=== PATIENT | male | born 1945 | race Caucasian/White ===

== ENCOUNTER → 2017-06-26 | Day surgery (SDC) | payer MEDICARE, OTHER ==
[2017-06-22 10:17] VITALS: BMI 30.7
[~2017-06-26] MED LIST: SODIUM CHLORIDE 0.9% 1,000 ML IV SCH
[2017-06-26 12:24] VITALS: RESP 18; TEMP 98.1
[2017-06-26 12:34] LABS: Glucose,Whole Blood 117 mg/dL (75-99)
[2017-06-26] MEDS: IOHEXOL 350 MG/ML 50ML BOTTLE INJ ONE ×2 (13:06→13:08)
--- NOTE | 2017-06-26 13:50 | P.PCN ---
Preoperative Diagnosis: Procedure left upper extremity venogram Indication for the procedure Evaluate patency of left upper extremity veins including left subclavian innominate and axillary veins prior to upgrade to a biventricular system 100% RV pacing 2-D echo shows a left radical ejection fraction chronically reduced at 35% Procedure IV dye was injected in the left upper extremity and moderate stenosis was noted at the junction of the axillary/subclavian vein for about a centimeter or so. It is quite likely that within range past RN SURGICAL PCU, and LV lead should be implanted via this. Patient has a history of progressive cardio myopathy. Original implant of a dual-chamber pacemaker was in 2012. Ejection fraction 50%. 2013 ejection fraction again was 50%. Subsequently in 2016 ejection fraction was reduced. In 2017 2-D echo has shown reduced LV systolic function. Stress test shows a fixed defect only no ischemia. Patient complains of gradually increasing shortness of breath and heart failure symptoms It is quite likely that his cardiomyopathy is as a result of RV pacing and therefore I have recommended upgrade to a biventricular pacemaker I also discussed the option of laser lead extraction in the event of inability to pass the area of the stenosis to implant a [employer]ESSED [employer] device Risk and benefits of both approaches were discussed in detail Plan TVP New LV lead implant Upgrade to a biventricular pacemaker device
[2017-06-26 14:31] VITALS: PULSE 64
[2017-06-26 14:32] VITALS: BP 145/65
== END ==
LOC: CATHEP 11:53
PROVIDERS: ATTEND Internal Medicine Clinical Cardiac Electrophysiology
DX: I25.10 Atherosclerotic heart disease of native coronary artery without angina pectoris (principal); I87.1 Compression of vein; I11.9 Hypertensive heart disease without heart failure; I25.5 Ischemic cardiomyopathy; I42.0 Dilated cardiomyopathy; I44.2 Atrioventricular block, complete; E78.00 Pure hypercholesterolemia, unspecified; E11.9 Type 2 diabetes mellitus without complications; Z95.1 Presence of aortocoronary bypass graft; Z95.0 Presence of cardiac pacemaker; Z79.84 Long term (current) use of oral hypoglycemic drugs; Z79.82 Long term (current) use of aspirin; Z79.899 Other long term (current) drug therapy; Z87.891 Personal history of nicotine dependence
CPT/HCPCS: 36005; 75820; 76000; Q9967

== ENCOUNTER 2024-04-02 15:06 | Day surgery (SDC) | payer MEDICARE ==
[2024-04-02] MEDS ORDERED: LIDOCAINE 1% INJ 10MG/ML (20 ML MDV) ONE (19:00)
[2024-04-02] MEDS ORDERED: SODIUM CHLORIDE 0.9% 500 ML BAG ONE (19:00)
[2024-04-02] MEDS: IOPAMIDOL-370 100ML BTL IVP ONE (19:08)
--- NOTE | 2024-04-05 15:57 | CE ---
CARDIAC ELECTROPHYSIOLOGY REPORT Mr. Km Amos has a biventricular pacemaker whose LV lead has high output resulting in rapid battery depletion. He underwent biventricular pacemaker interrogation. He has a battery life of 1.7 years. His left ventricular ejection fraction is reduced to 45%. The atrial lead was functioning normally. Pacing threshold is 0.7 V at 0.4 milliseconds. P waves 2.6 mV and pacing impedance 460 ohms. Right ventricular lead pacing threshold was 1 V at 0.4 milliseconds and pacing impedance is 440 ohms. LV pacing threshold was very high with a high impedance of greater than 3000 and therefore there was no LV pacing at this time. 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 He has Prater device Quadra Allure MP RF model #3262 ASSORTER-P. Left upper extremity venogram was performed. 15 mL of IV dye injected. 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 This stenosis is fairly tight, but there seems to be flow into the channel and it may be possible to access this with an angioplasty wire followed by venoplasty and implantation of a left bundle lead. If this is not possible, then a right-sided implant will have to be performed or an epicardial implant for the left ventricular lead. MMODL / IJN: [id number] /
== END 2024-04-02 19:36 | disposition home or self-care (01) ==
LOC: CATHEP 15:06
PROVIDERS: ATTEND Internal Medicine Clinical Cardiac Electrophysiology
DX: I42.9 Cardiomyopathy, unspecified (principal)
CPT/HCPCS: 36005; 75820

== ENCOUNTER 2024-07-04 15:08 | Inpatient (IN) | payer MEDICARE ==
[2024-07-04 16:05] LABS: Basophils % (A) 0 %; Eosinophils # (A) 0.4 k/uL (0-0.7); Eosinophils % (A) 5 %; HCT 41.3 % (39.0-53.0); HGB 13.7 gm/dL (13.0-17.5); Lymphocytes # (A) 1.6 k/uL (1.0-4.8); Lymphocytes % (A) 20 %; MCH 30.8 pg (25.0-35.0); MCHC 33.2 g/dL (31.0-37.0); MCV 92.6 fL (80.0-100.0); Mean Platelet Volume 8.9; Monocytes # (A) 0.6 k/uL (0-1.0); Monocytes % (A) 7 %; Neutrophils # (A) 5.1 k/uL (1.3-7.7); Neutrophils % (A) 65 %; Platelet Count 194 k/uL (150-450); RBC 4.46 m/uL (4.30-5.90); RDW 12.9 % (11.5-15.5); WBC 7.9 k/uL (3.8-10.6)
--- NOTE | 2024-07-04 16:06 | ED ---
General Adult HPI - General Chief complaint: Dizziness Stated complaint: post stroke, dizziness Time Seen by Provider: 07/04/24 15:31 Source: patient, family, RN notes reviewed, old records reviewed Mode of arrival: wheelchair Limitations: no limitations - History of Present Illness Initial comments: 79-year-old male presenting from Dr. Lal's office for evaluation of dizziness and episodes of bilateral upper extremity numbness and inability to move. Patient has had 3 total episodes over the past 2 weeks where he has had unsteady gait, dizziness and the sensation that his upper torso is completely numb. He denies numbness to his legs. He he denies symptoms at the time my evaluation. He states that each episode lasted several minutes with the most recent one lasting approximately 3 minutes. No fever. No headache. No chest or abdominal pain. No history of stroke no history of seizure - Related Data Home Medications Medication Instructions Recorded Confirmed Glimepiride [Amaryl] 1 mg PO BID 10/09/15 07/31/17 Atorvastatin [Lipitor] 20 mg PO HS 06/22/17 07/31/17 Fenofibrate Nanocrystallized 145 mg PO DAILY 06/22/17 07/31/17 [Fenofibrate] Spironolactone [Aldactone] 25 mg PO DAILY 06/22/17 07/31/17 carvediloL [Coreg] 12.5 mg PO BID 06/22/17 07/31/17 metFORMIN HCL [Glucophage] 1,000 mg PO BID 06/22/17 07/31/17 Aspirin 81 mg PO DAILY 07/31/17 07/31/17 Previous Rx's Medication Instructions Recorded Losartan [Cozaar] 25 mg PO DAILY #90 tab 07/31/17 Allergies Allergy/AdvReac Type Severity Reaction Status Date / Time No Known Allergies Allergy Verified 07/27/17 13:07 Review of Systems ROS Statement: Those systems with pertinent positive or pertinent negative responses have been documented in the HPI. ROS Other: All systems not noted in ROS Statement are negative. Past Medical History Past Medical History: Coronary Artery Disease (CAD), Cancer, Diabetes Mellitus, Hyperlipidemia, Hypertension, Myocardial Infarction ([place]), Osteoarthritis (OA), Sleep Apnea/CPAP/BIPAP Additional Past Medical History / Comment(s): PROSTATE CANCER WITH RADIATION & HORMONE TX(2013), SEE CARDIOLOGY H & P., STATES BREASTS ARE SWOLLEN AND SORE (>4 MONTHS) Last Myocardial Infarction Date:: 2008 ? History of Any Multi-Drug Resistant Organisms: None Reported Past Surgical History: Back Surgery, Cholecystectomy, Coronary Bypass/CABG, Heart Catheterization, Orthopedic Surgery, Pacemaker Additional Past Surgical History / Comment(s): CABG X4 in 2009, LOWER BACK, NECK SX X2, FOOT SX X 3, CATARACTS. Past Anesthesia/Blood Transfusion Reactions: No Reported Reaction Type of Cardiac Device: Permanent Pacemaker Device Placement Date:: 2012 Past Psychological History: No Psychological Hx Reported Past Alcohol Use History: None Reported Past Drug Use History: None Reported - Past Family History Brother(s) Family Medical History: Cancer Additional Family Medical History / Comment(s): 2 BROTHERS WITH PROSTATE CA Mother Family Medical History: No Reported History General Exam Limitations: no limitations General appearance: alert, in no apparent distress Head exam: Present: atraumatic, normocephalic Eye exam: Present: normal appearance, PERRL ENT exam: Present: normal exam Neck exam: Present: normal inspection. Absent: tenderness, meningismus Respiratory exam: Present: normal lung sounds bilaterally. Absent: respiratory distress, wheezes Cardiovascular Exam: Present: regular rate, normal rhythm GI/Abdominal exam: Present: soft. Absent: distended, tenderness, guarding Extremities exam: Present: normal inspection, normal capillary refill. Absent: pedal edema Neurological exam: Present: alert, oriented X3, CN II-XII intact, other (No ataxia, no nystagmus, strength 5 out of 5 throughout). Absent: motor sensory deficit Psychiatric exam: Present: normal affect, normal mood Skin exam: Present: warm, dry, intact Course Vital Signs 07/04/24 07/04/24 07/04/24 15:17 16:00 17:24 Temperature 97.8 F 98.2 F Pulse Rate 60 64 60 Respiratory 16 16 14 Rate Blood Pressure 188/75 163/75 163/82 O2 Sat by Pulse 99 98 97 Oximetry Medical Decision Making - Medical Decision Making Was pt. sent in by a medical professional or institution (, PA, ENVIRONMENTAL PROGRAMS MANAGER, urgent care, hospital, or snf...) When possible be specific @Sent in by Dr. Lal for evaluation Did you speak to anyone other than the patient for history (EMS, parent, family, police, friend...)? What history was obtained from this source @ -No Did you review nursing and triage notes (agree or disagree)? Why? @ -I reviewed and agree with nursing and triage notes Were old charts reviewed (outside hosp., previous admission, EMS record, old EKG, old radiological studies, urgent care reports/EKG's, snf records)? Report findings @ -No old charts were reviewed Differential CVA Ischemic stroke, hemorrhagic stroke, brain tumor, atypical migraine, Wernicke's encephalopathy, seizure, multiple sclerosis, meningitis, encephalitis, hypoglycemia, Guillain-Carpenter, electrolytes disturbance, myasthenia gravis.... This is not meant to be an all-inclusive list] EKG interpreted by me (3pts min.). @ -Paced rhythm rate of 60 VA interval 211 QRS duration 174, QTc 462 X-rays interpreted by me (1pt min.). @Chest x-ray negative for acute cardiopulmonary findings CT interpreted by me (1pt min.). @ -None done U/S interpreted by me (1pt. min.). @ -None done What testing was considered but not performed or refused? (CT, X-rays, U/S, labs)? Why? @ -None What meds were considered but not given or refused? Why? @ -None Did you discuss the management of the patient with other professionals (professionals i.e. , PA, ENVIRONMENTAL PROGRAMS MANAGER, lab, RT, psych nurse, sexual assault social worker, building construction supervisor, teacher, foreign policy officer, case loader operator)? Give summary @ -Dr. Cleveland Was smoking cessation discussed for >3mins.? @ -No Was critical care preformed (if so, how long)? @ -No Were there social determinants of health that impacted care today? How? (Homelessness, low income, unemployed, alcoholism, drug addiction, transport ation, low edu. Level, literacy, decrease access to med. care, alf, rehab)? @ -No Was there de-escalation of care discussed even if they declined (Discuss DNR or withdrawal of care, Hospice)? DNR status @ -No What co-morbidities impacted this encounter? (DM, HTN, Smoking, COPD, CAD, Cancer, CVA, ARF, Chemo, Hep., AIDS, mental health diagnosis, sleep apnea, morbid obesity)? @ -Coronary artery disease, status post pacemaker Was patient admitted / discharged? Hospital course, mention meds given and route, prescriptions, significant lab abnormalities, going to OR and other pertinent info. @79-year-old male sent in for evaluation of episodes of bilateral upper extremity numbness and weakness there is been 3 total episodes with increasing severity over the past approximately 1 to 2 weeks. The patient was seen by cardiothoracic surgery today and sent to the emergency department for evaluation of the symptoms. He is asymptomatic at this time. Stable vitals. He is in a paced rhythm. He has a normal CBC, normal CMP normal head CT negative chest x- ray. There was request for evaluation by both cardiology and neurology for the symptoms. Patient admitted to [facility]. Undiagnosed new problem with uncertain prognosis? @ -No Drug Therapy requiring intensive monitoring for toxicity (Heparin, Nitro, Insulin, Cardizem)? @ -No Were any procedures done? @ -No Diagnosis/symptom? @ -Intermittent bilateral upper extremity numbness and weakness Acute, or Chronic, or Acute on Chronic? @ -[Acute Uncomplicated (without systemic symptoms) or Complicated (systemic symptoms)? @ -Default Side effects of treatment? @ -No Exacerbation, Progression, or Severe Exacerbation? @ -No Poses a threat to life or bodily function? How? (Chest pain, [place], PA, pneumonia, PE, COPD, DKA, ARF, appy, cholecystitis, CVA, Diverticulitis, Homicidal, Suicidal, threat to staff... and all critical care pts) @ -[Possible CVA versus seizure versus arrhythmia - Lab Data Result diagrams: 07/04/24 15:42 07/04/24 15:42 Lab Results 07/04/24 07/04/24 07/04/24 Range/Units 15:42 15:42 15:42 WBC 7.9 (3.8-10.6) k/uL RBC 4.46 (4.30-5.90) m/uL Hgb 13.7 (13.0-17.5) gm/dL Hct 41.3 (39.0-53.0) % MCV 92.6 (80.0-100.0) fL MCH 30.8 (25.0-35.0) pg MCHC 33.2 (31.0-37.0) g/dL RDW 12.9 (11.5-15.5) % Plt Count 194 (150-450) k/uL MPV 8.9 Neutrophils % 65 % Lymphocytes % 20 % Monocytes % 7 % Eosinophils % 5 % Basophils % 0 % Neutrophils # 5.1 (1.3-7.7) k/uL Lymphocytes # 1.6 (1.0-4.8) k/uL Monocytes # 0.6 (0-1.0) k/uL Eosinophils # 0.4 (0-0.7) k/uL Basophils # 0.0 (0-0.2) k/uL PT 12.2 (10.0-12.5) sec INR 1.1 (<1.2) APTT 22.9 (22.0-30.0) sec Sodium 141 (137-145) mmol/L Potassium 4.5 (3.5-5.1) mmol/L Chloride 109 H (98-107) mmol/L Carbon Dioxide 28 (22-30) mmol/L Anion Gap 4 mmol/L BUN 20 (9-20) mg/dL Creatinine 1.13 (0.66-1.25) mg/dL Est GFR (CKD-EPI)AfAm 72 (>60 ml/min/1.73 sqM) Est GFR (CKD-EPI)NonAf 63 (>60 ml/min/1.73 sqM) Glucose 90 (74-99) mg/dL Calcium 9.3 (8.4-10.2) mg/dL Magnesium 1.8 (1.6-2.3) mg/dL Total Bilirubin 0.6 (0.2-1.3) mg/dL AST 18 (17-59) U/L ALT 20 (4-49) U/L Alkaline Phosphatase 54 (38-126) U/L Troponin I (0.000-0.034) ng/mL Total Protein 6.5 (6.3-8.2) g/dL Albumin 4.3 (3.5-5.0) g/dL 07/04/24 Range/Units 15:42 WBC (3.8-10.6) k/uL RBC (4.30-5.90) m/uL Hgb (13.0-17.5) gm/dL Hct (39.0-53.0) % MCV (80.0-100.0) fL MCH (25.0-35.0) pg MCHC (31.0-37.0) g/dL RDW (11.5-15.5) % Plt Count (150-450) k/uL MPV Neutrophils % % Lymphocytes % % Monocytes % % Eosinophils % % Basophils % % Neutrophils # (1.3-7.7) k/uL Lymphocytes # (1.0-4.8) k/uL Monocytes # (0-1.0) k/uL Eosinophils # (0-0.7) k/uL Basophils # (0-0.2) k/uL PT (10.0-12.5) sec INR (<1.2) APTT (22.0-30.0) sec Sodium (137-145) mmol/L Potassium (3.5-5.1) mmol/L Chloride (98-107) mmol/L Carbon Dioxide (22-30) mmol/L Anion Gap mmol/L BUN (9-20) mg/dL Creatinine (0.66-1.25) mg/dL Est GFR (CKD-EPI)AfAm (>60 ml/min/1.73 sqM) Est GFR (CKD-EPI)NonAf (>60 ml/min/1.73 sqM) Glucose (74-99) mg/dL Calcium (8.4-10.2) mg/dL Magnesium (1.6-2.3) mg/dL Total Bilirubin (0.2-1.3) mg/dL AST (17-59) U/L ALT (4-49) U/L Alkaline Phosphatase (38-126) U/L Troponin I <0.012 (0.000-0.034) ng/mL Total Protein (6.3-8.2) g/dL Albumin (3.5-5.0) g/dL Disposition Clinical Impression: TIA (transient ischemic attack) Disposition: ADMITTED IP TO THIS HOSP Condition: Stable Is patient prescribed a controlled substance at d/c from ED?: No Referrals: Willi Johnson DO [STAFF PHYSICIAN] - 1-2 days Time of Disposition: 17:52
[2024-07-04 16:13] LABS: ALT 20 U/L (4-49); AST 18 U/L (17-59); African American GFR (CKD) 72 (>60 ml/min/1.73 sqM); Albumin 4.3 g/dL (3.5-5.0); Alkaline Phosphatase 54 U/L (38-126); Anion Gap 4 mmol/L; Blood Urea Nitrogen 20 mg/dL (9-20); Calcium 9.3 mg/dL (8.4-10.2); Carbon Dioxide 28 mmol/L (22-30); Chloride 109 mmol/L (98-107); Glucose 90 mg/dL (74-99); INR 1.1 (<1.2); Magnesium 1.8 mg/dL (1.6-2.3); Non-African American GFR(CKD) 63 (>60 ml/min/1.73 sqM); Partial Thromboplastin Time 22.9 sec (22.0-30.0); Potassium 4.5 mmol/L (3.5-5.1); Prothrombin Time 12.2 sec (10.0-12.5); Sodium 141 mmol/L (137-145); Total Bilirubin 0.6 mg/dL (0.2-1.3); Total Protein 6.5 g/dL (6.3-8.2)
--- NOTE | 2024-07-04 16:44 | CT ---
EXAMINATION TYPE: CT brain wo con DATE OF EXAM: 07/04/2024 4:24 PM COMPARISON: None. CLINICAL INDICATION: Male, 79 years old with history of weakness, weakness, dizziness TECHNIQUE: Brain: Axial CT images of the brain were obtained with coronal and sagittal reformats created and rev iewed. Contrast used: None. Oral contrast used: None. CT DLP: 1170.5 mGycm, Automated exposure control for dose reduction was used. FINDINGS: Brain: Extra-axial spaces: No abnormal extra-axial fluid collections. Ventricular system: Within normal limits Cerebral parenchyma: No acute intraparenchymal hemorrhage or mass effect. The mathis-white junction is well differentiated. Cerebellum: Unremarkable. Mass effect: No evidence of midline shift. Intracranial vasculature: Atherosclerotic calcifications of the intracranial vessels. Soft tissues: Normal. Calvarium/osseous structures: No depressed skull fracture. Paranasal sinuses and mastoid air cells: Mild scattered paranasal sinus disease. Visualized orbits: Bilateral aphakia IMPRESSION: No acute intracranial process. [facility], , 07/04/2024 4:42 PM
--- NOTE | 2024-07-04 17:18 | XR ---
EXAMINATION TYPE: XR chest 2V DATE OF EXAM: 07/04/2024 4:54 PM COMPARISON: Chest radiographs from 08/01/2017 CLINICAL INDICATION: Male, 79 years old with history of Weakness; [facility] TECHNIQUE: XR chest 2V Frontal and lateral views of the chest. FINDINGS: Lungs/Pleura: There is no evidence of pleural effusion, focal consolidation, or pneumothorax. Pulmonary vascularity: Unremarkable. Heart/mediastinum: Cardiomediastinal silhouette is unremarkable. Three lead cardiac conduction device overlying the left hemithorax with lead tips projecting over the right ventricle, right atrium and c oronary sinus. Musculoskeletal: No acute osseous pathology. Midline sternotomy wires are noted. IMPRESSION: No acute cardiopulmonary disease/process. [facility], , 07/04/2024 5:15 PM
[2024-07-04] MEDS ORDERED: NALOXONE 0.4 MG/ML 1 ML VIAL IV PRN (17:44)
[2024-07-04] MEDS ORDERED: ACETAMINOPHEN TAB 325 MG TAB PO PRN (17:44)
[2024-07-04 18:11] LABS: Appearance,Urine Clear (Clear); Bilirubin,Urine Negative (Negative); Blood,Urine Negative (Negative); Color,Urine Colorless; Glucose,Urine (UA) Negative (Negative); Ketones,Urine Negative (Negative); Leukocyte Esterase,Urine Negative (Negative); Mucus,Urine Rare /hpf; Nitrite,Urine Negative (Negative); PH, Urine 6.5 (5.0-8.0); Protein,Urine 1+ (Negative); RBC,Urine <1 /hpf (0-5); Specific Gravity,Urine 1.008 (1.001-1.035); Urobilinogen,Urine <2.0 mg/dL (<2.0); WBC,Urine <1 /hpf (0-5)
[2024-07-04] MEDS ORDERED: DEXTROSE 50% SYRINGE 50 ML IVP PRN ×2 (21:21)
--- NOTE | 2024-07-05 02:01 | P.HPIM ---
History of Present Illness H&P Date: 07/04/24 History of present illness; 79-year-old man with a PMH of ischemic cardiomyo finn with IV pacemaker placement, EF 35%, diabetes mellitus, hyperlipidemia, hypertension, myocardial infarction, sleep apnea, history of prostate cancer with radiation and hormone therapy (2013). He presented to the emergency department from Dr. Lal's office for evaluation of dizziness and episodes of bilateral upper extremity numbness and inability to move. Patient states he has had 3 total episodes for the past 2 weeks where he has had an unsteady gait, dizziness and a sensation that his upper torso is completely numb. He denies any numbness in his legs. He states that each episode lasts several minutes with the most recent one lasting approximately 3 minutes. He states he has had no fever, no headache, no chest or abdominal pain. He has no history of strokes or seizures. When seen at bedside the patient states he is not currently having any symptoms and has not since the episode yesterday. He does state that over the past month or so he has noticed feeling increasingly unsteady when walking, however he is able to ambulate and carry out ADLs and he remains very active ou tside. He has no acute complaints at this time. Labratory review: -WBC 7.9, hemoglobin 13.7, hematocrit 41.3, platelet 194; sodium 141, potassium 4.5, BUN 20, creatinine 1.13, glucose 90, AST 18, ALT 20 -Urinalysis noncontributory Imaging: -CT brain completed in the emergency department showed no acute intracranial process -Chest x-ray in the emergency department showed no acute cardiopulmonary disease/process -EKG done in the ER showed Electronic pacemaker with heart rate of 60, no ST segment elevation or depression seen, no T-wave inversions seen; QTc 462 Vitals: -Blood pressure 150/88, heart rate 60, respiratory rate 15, SpO2 97% on room air Patient admitted to internal medicine service REVIEW OF SYSTEMS: CONSTITUTIONAL: No fever, no malaise, no fatigue. HEENT: No recent visual problems or hearing problems. Denied any sore throat. CARDIOVASCULAR: No chest pain, orthopnea, PND, no palpitations, no syncope. PULMONARY: No shortness of breath, no cough, no hemoptysis. GASTROINTESTINAL: No diarrhea, no nausea, no vomiting, no abdominal pain. NEUROLOGICAL: No headaches, no weakness, no numbness. HEMATOLOGICAL: Denies any bleeding or petechiae. GENITOURINARY: Denies any burning micturition, frequency, or urgency. MUSCULOSKELETAL/RHEUMATOLOGICAL: Denies any joint pain, swelling, or any muscle pain. ENDOCRINE: Denies any polyuria or polydipsia. The rest of the 14-point review of systems is negative. PHYSICAL EXAMINATION: GENERAL: The patient is alert and oriented x3, not in any acute distress. Well developed, well nourished. HEENT: EOMI. No scleral icterus. No conjunctival pallor. Normocephalic, atraumatic. No pharyngeal erythema. No thyromegaly. CARDIOVASCULAR: S1 and S2 present. No murmurs, rubs, or gallops. PULMONARY: Chest is clear to auscultation, no wheezing or crackles. ABDOMEN: Soft, nontender, nondistended, normoactive bowel sounds. No palpable organomegaly. MUSCULOSKELETAL: No joint swelling or deformity. EXTREMITIES: No cyanosis, clubbing, or pedal edema. NEUROLOGICAL: Gross neurological examination did not reveal any focal deficits. Strength 5/5 BL upper and lower extremities. CN II-XII intact without any apparent abnormality. SKIN: No rashes. Assessment and plan 79-year-old man with a PMH of CAD with a history of open heart surgery and pacemaker placement, diabetes mellitus, hyperlipidemia, hypertension, myocardial infarction, sleep apnea, history of prostate cancer with radiation hormone therapy (2013). Presents to the emergency department from Dr. Lal's office following the description of episodic bilateral upper extremity numbness and paralysis. #Episodic bilateral upper extremity weakness and paralysis #History of pacemaker placement -Unclear etiology -CT brain completed in the emergency department showed no acute intracranial process -Pacemaker interrogation -Cardiology consulted -Neuro consulted -Cardiac monitoring -Fall precautions -PT consulted #Hyperlipidemia -Continue home medication 40 mg Lipitor nightly #Hypertension -Continue home medication 12.5 mg Coreg twice daily, 25 mg Cozaar daily #Hypothyroidism -Continue home medication 25 mcg Synthroid daily #Diabetes mellitus -Maintained at home on 1000 mg metformin twice daily and glimepiride 1 mg daily and 2 mg nightly -low dose sliding scale, monitor for hypoglycemia -Accu-cheks -Hemoglobin A1c pending CODE STATUS: Full code GI prohylaxis: Not indicated DVT prophylaxis: Lovenox 40 mg daily Dictation was produced using [employer] dictation software. please excuse any grammatical, word or spelling errors. The patient is admitted with an anticipated less than 2 midnight stay as observation status for evaluation of upper extremity neurosymptoms. A total of 55 minutes was spent on the care of this complex patient more than 50% of the time was spent in counseling and care coordination. I have seen and evaluated the patient today. Discussed with the resident and agree with the residents finding and plan as documented in the resident's note. Changes highlighted in blue font. Past Medical History Past Medical History: Coronary Artery Disease (CAD), Cancer, Diabetes Mellitus, Hyperlipidemia, Hypertension, Myocardial Infarction ([place]), Osteoarthritis (OA), Sleep Apnea/CPAP/BIPAP Additional Past Medical History / Comment(s): PROSTATE CANCER WITH RADIATION & HORMONE TX(2013), SEE CARDIOLOGY H & P., STATES BREASTS ARE SWOLLEN AND SORE (>4 MONTHS) Last Myocardial Infarction Date:: 2008 ? History of Any Multi-Drug Resistant Organisms: None Reported Past Surgical History: Back Surgery, Cholecystectomy, Coronary Bypass/CABG, Heart Catheterization, Orthopedic Surgery, Pacemaker Additional Past Surgical History / Comment(s): CABG X4 in 2008, LOWER BACK, NECK SX X2, FOOT SX X 3, CATARACTS. Past Anesthesia/Blood Transfusion Reactions: No Reported Reaction Type of Cardiac Device: Permanent Pacemaker Device Placement Date:: 2012 Past Psychological History: No Psychological Hx Reported Past Alcohol Use History: None Reported Past Drug Use History: None Reported - Past Family History Brother(s) Family Medical History: Cancer Additional Family Medical History / Comment(s): 2 BROTHERS WITH PROSTATE CA Mother Family Medical History: No Reported History Medications and Allergies Home Medications Medication Instructions Recorded Confirmed Type Glimepiride [Amaryl] 1 mg PO DAILY 10/09/15 07/04/24 History Atorvastatin [Lipitor] 40 mg PO HS 06/22/17 07/04/24 History carvediloL [Coreg] 12.5 mg PO BID 06/22/17 07/04/24 History metFORMIN HCL [Glucophage] 1,000 mg PO BID 06/22/17 07/04/24 History Aspirin 81 mg PO DAILY 07/31/17 07/04/24 History Glimepiride [Amaryl] 2 mg PO HS 07/04/24 07/04/24 History Levothyroxine Sodium [Synthroid] 25 mcg PO DAILY 07/04/24 07/04/24 History Losartan [Cozaar] 25 mg PO DAILY@1200 07/04/24 07/04/24 History Allergies Allergy/AdvReac Type Severity Reaction Status Date / Time No Known Allergies Allergy Verified 07/04/24 19:18 Physical Exam Vitals: Vital Signs Temp Pulse Resp BP Pulse Ox 07/04/24 18:15 98.3 F 60 15 154/88 07/04/24 17:24 60 14 163/82 97 07/04/24 16:00 98.2 F 64 16 163/75 98 07/04/24 15:17 97.8 F 60 16 188/75 99 Intake and Output 07/04/24 07/04/24 07/04/24 06:59 14:59 22:59 Other: Weight 83.915 kg Results CBC & Chem 7: 07/04/24 15:42 07/04/24 15:42 Labs: Abnormal Lab Results - Last 24 Hours (Table) 07/04/24 07/04/24 Range/Units 15:42 15:42 Chloride 109 H (98-107) mmol/L Urine Protein 1+ H (Negative) Urine Mucus Rare H (None) /hpf
[2024-07-05 03:41] LABS: Glucose,Whole Blood 101 mg/dL (70-110)
[2024-07-05 06:06] LABS: Glucose,Whole Blood 128 mg/dL (70-110)
[2024-07-05] MEDS: LEVOTHYROXINE 25 MCG TAB PO SCH (06:15)
[2024-07-05] MEDS: INSULIN ASPART (NovoLOG) 100 UNIT/ML VIAL SQ SCH (06:17)
[2024-07-05] MEDS: ASPIRIN 81 MG PO SCH (09:03)
[2024-07-05] MEDS: SACUBITRIL/VALSARTAN 24 MG-26 MG TABLET PO SCH (09:03)
[2024-07-05] MEDS: carvediloL 12.5 MG TAB PO SCH (09:03)
[2024-07-05] MEDS: ENOXAPARIN 40 MG/0.4 ML SYRINGE SQ SCH (09:03)
--- NOTE | 2024-07-05 10:31 | CT ---
EXAMINATION TYPE: CT cervical spine wo con CT DLP: 449.4 mGycm, Automated exposure control for dose reduction was used. DATE OF EXAM: 07/05/2024 10:22 AM COMPARISON: None. CLINICAL INDICATION:Male, 79 years old with history of bilateral upper extremity numbness; PHH, bilat eral upper extremity numbness, ringing in ears TECHNIQUE: Axial CT images from the skull base to the inferior aspect of T2 we obtained without intra venous contrast. Coronal and sagittal reformatted images were also reviewed. FINDINGS: Fracture: None. Osseous structures: Multilevel degenerative disc disease changes with endplate spurring and disc oste ophyte complex's. Sclerotic focus within the C5 vertebral body most consistent with benign bone islan d. Median sternotomy wires. Vertebral alignment: Within normal limits. Spinal canal/Neural Foramina: Disc osteophyte complexes at C2-C3, C5-C6 and C6-C7 with at least mild spinal canal stenosis. Mild right neural foraminal stenosis secondary to uncovertebral joint hypertro phy at C2-C3, C3-C4, and C4-C5. Moderate bilateral neural foraminal stenosis at C5-C6 secondary to un covertebral joint hypertrophy. Severe bilateral neuroforaminal stenosis at C6-C7 secondary to uncover tebral joint hypertrophy. Neck soft tissues: Prevertebral soft tissues are within normal limits. Other: The airway is patent. The lung apices are clear. Bilateral carotid bulb calcifications. Partia l visualization of cardiac pacemaker leads. IMPRESSION: 1. No evidence of cervical spine fracture. 2. Moderate multilevel degenerative disc disease and uncovertebral joint hypertrophy. This is most pr onounced at C5-C7 as described above. [facility], , 07/05/2024 10:29 AM
--- NOTE | 2024-07-05 11:31 | P.CRDCN ---
History of Present Illness History of present illness: HISTORY OF PRESENT ILLNESS: This is a 79-year-old male with a past medical history significant for coronary artery disease with previous CABG, ischemic cardiomyopathy, complete heart block status post biventricular pacemaker, hypertension, hyperlipidemia, and diabetes. Patient follows in the office with Dr. Brownlee. We have been asked to see the patient in consultation for dizziness. Patient examined at the bedside. Patient was at Dr. Alex Lal's office yesterday for possible LV lead implantation via thorascopic approach. While at this appointment, he told Dr. Lal he had had an episode the day before while driving. He states that he was driving and then he stopped and went to open up the door and suddenly his whole body went numb from the waist up. He denied any motor weakness. He states he was able to walk into his house. He states he had a similar episode last week but it was not as severe. He denied having any chest pain or pressure. Denied any shortness of breath. He denied any issues with his speech or vision. The patient was directed to come to the emergency room. The patient states he has not had any further episodes like this since being in the hospital. Patient's vital signs are stable. Patient's blood pressures have been elevated with a systolic greater than 150 since admission. DIAGNOSTICS: - EKG reveals AV paced rhythm - Chest xray negative for acute process - Laboratory data: WBC 7.9. Hemoglobin 13.7. Platelet count 194. Sodium 141. Potassium 4.5. BUN 20. Creatinine 1.13. Troponin negative x 1. - Current home cardiac medications include losartan 25 mg daily, carvedilol 12.5 mg twice a day, aspirin 81 mg daily, atorvastatin 40 mg at night - Most recent echocardiogram obtained in November 2022 revealing ejection fraction 50%, grade 1 diastolic dysfunction, no LVH - Patient underwent Lexiscan stress test in January 2023 revealing EF of 47% and no evidence of reversible ischemia - Patient underwent CABG in July 2008 with BACA to LAD, radial to PDA, SVG to diagonal, SVG to OM REVIEW OF SYSTEMS: At the time of my exam: CONSTITUTIONAL: Denies fever or chills. HEENT: Denies blurred vision, vision changes, or eye pain. Denies hemoptysis CARDIOVASCULAR: Denies chest pain. Denies orthopnea. Denies PND. Denies palpitat ions RESPIRATORY: Denies shortness of breath. GASTROINTESTINAL: Denies abdominal pain. Denies nausea or vomiting. HEMATOLOGIC: Denies bleeding disorders. GENITOURINARY: Denies any blood in urine. SKIN: Denies pruitis. Denies rash. PHYSICAL EXAM: VITAL SIGNS: Reviewed. GENERAL: Well-developed in no acute distress. HEENT: Head is normocephalic. Pupils are equal, round. Sclerae anicteric. Mucous membranes of the mouth are moist. Neck supple. No JVD or thyromegaly LUNGS: Respirations even and unlabored. Lungs essentially clear to auscultation bilaterally. HEART: Regular rate and rhythm. S1 and S2 heard. ABDOMEN: Soft. Nondistended. Nontender. EXTREMITIES: Normal range of motion. No clubbing or cyanosis. Peripheral pulses intact. No lower extremity edema NEUROLOGIC: Awake and alert. Oriented x 3. ASSESSMENT: Episode of numbness from the waist up, without loss of motor skills, etiology unclear Coronary artery disease with previous four-vessel CABG, 2007 Ischemic cardiomyopathy History of complete heart block status post biventricular pacemaker, [facility] Hypertension, uncontrolled Hyperlipidemia Diabetes Hypothyroidism History of TIA, per patient PLAN: Obtain 2D echo to assess cardiac structure and function Interrogate device Obtain orthostatic blood pressures Discontinue losartan. Begin Entresto 24-26 mg twice a day for optimal blood pressure control Neurology consulted. Await evaluation Patient to follow up outpatient with Dr. Lal for possible LV lead implantat ion via thorascopic approach Further recommendations pending patient course Nurse practitioner note has been reviewed by physician. Signing provider agrees with the documented findings, assessment, and plan of care documented by WOOD SCIENCE PROFESSOR as a scribe. Past Medical History Past Medical History: Coronary Artery Disease (CAD), Cancer, Diabetes Mellitus, Hyperlipidemia, Hypertension, Myocardial Infarction ([place]), Osteoarthritis (OA), Sleep Apnea/CPAP/BIPAP Additional Past Medical History / Comment(s): PROSTATE CANCER WITH RADIATION & HORMONE [place](2013), SEE CARDIOLOGY H & P., STATES BREASTS ARE SWOLLEN AND SORE (>4 MONTHS) Last Myocardial Infarction Date:: 2008 ? History of Any Multi-Drug Resistant Organisms: None Reported Past Surgical History: Back Surgery, Cholecystectomy, Coronary Bypass/CABG, Heart Catheterization, Orthopedic Surgery, Pacemaker Additional Past Surgical History / Comment(s): CABG X4 in 2009, LOWER BACK, NECK SX X2, FOOT SX X 3, CATARACTS. Past Anesthesia/Blood Transfusion Reactions: No Reported Reaction Type of Cardiac Device: Permanent Pacemaker Device Placement Date:: 2012 Past Psychological History: No Psychological Hx Reported Past Alcohol Use History: None Reported Past Drug Use History: None Reported - Past Family History Brother(s) Family Medical History: Cancer Additional Family Medical History / Comment(s): 2 BROTHERS WITH PROSTATE CA Mother Family Medical History: No Reported History Medications and Allergies Home Medications Medication Instructions Recorded Confirmed Type Glimepiride [Amaryl] 1 mg PO DAILY 10/09/15 07/04/24 History Atorvastatin [Lipitor] 40 mg PO HS 06/22/17 07/04/24 History carvediloL [Coreg] 12.5 mg PO BID 06/22/17 07/04/24 History metFORMIN HCL [Glucophage] 1,000 mg PO BID 06/22/17 07/04/24 History Aspirin 81 mg PO DAILY 07/31/17 07/04/24 History Glimepiride [Amaryl] 2 mg PO HS 07/04/24 07/04/24 History Levothyroxine Sodium [Synthroid] 25 mcg PO DAILY 07/04/24 07/04/24 History Losartan [Cozaar] 25 mg PO DAILY@1200 07/04/24 07/04/24 History Allergies Allergy/AdvReac Type Severity Reaction Status Date / Time No Known Allergies Allergy Verified 07/04/24 19:18 Physical Exam Vitals: Vital Signs Temp Pulse Pulse Resp BP BP BP 07/05/24 09:20 157/73 07/05/24 06:59 97.9 F 70 16 175/72 07/05/24 03:55 97.9 F 60 16 171/89 07/05/24 03:38 67 18 155/83 07/04/24 23:12 67 18 132/78 07/04/24 21:26 60 20 152/69 07/04/24 18:15 98.3 F 60 15 154/88 07/04/24 17:24 60 14 163/82 07/04/24 16:00 98.2 F 64 16 163/75 07/04/24 15:17 97.8 F 60 16 188/75 BP BP Pulse Ox 07/05/24 09:20 182/74 165/85 07/05/24 06:59 98 07/05/24 03:55 98 07/05/24 03:38 96 07/04/24 23:12 98 07/04/24 21:26 96 07/04/24 18:15 07/04/24 17:24 97 07/04/24 16:00 98 07/04/24 15:17 99 Intake and Output 07/04/24 07/05/24 07/05/24 22:59 06:59 14:59 Intake Total 240 Balance 240 Intake: Oral 240 Other: Voiding Method Toilet Toilet # Voids 1 Weight 83.915 kg 83.915 kg Results 07/04/24 15:42 07/04/24 15:42 Cardiac Enzymes 07/04/24 07/04/24 Range/Units 15:42 15:42 AST 18 (17-59) U/L Troponin I <0.012 (0.000-0.034) ng/mL Coagulation 07/04/24 Range/Units 15:42 PT 12.2 (10.0-12.5) sec APTT 22.9 (22.0-30.0) sec CBC 07/04/24 Range/Units 15:42 WBC 7.9 (3.8-10.6) k/uL RBC 4.46 (4.30-5.90) m/uL Hgb 13.7 (13.0-17.5) gm/dL Hct 41.3 (39.0-53.0) % Plt Count 194 (150-450) k/uL Comprehensive Metabolic Panel 07/04/24 Range/Units 15:42 Sodium 141 (137-145) mmol/L Potassium 4.5 (3.5-5.1) mmol/L Chloride 109 H (98-107) mmol/L Carbon Dioxide 28 (22-30) mmol/L BUN 20 (9-20) mg/dL Creatinine 1.13 (0.66-1.25) mg/dL Glucose 90 (74-99) mg/dL Calcium 9.3 (8.4-10.2) mg/dL AST 18 (17-59) U/L ALT 20 (4-49) U/L Alkaline Phosphatase 54 (38-126) U/L Total Protein 6.5 (6.3-8.2) g/dL Albumin 4.3 (3.5-5.0) g/dL Current Medications Generic Name Dose Route Start Last Admin Trade Name Darryl PRN Reason Stop Dose Admin Acetaminophen 650 mg 07/04/24 17:44 Acetaminophen Tab 325 Mg Tab PO Q6HR PRN Mild Pain or Fever > 100.5 Aspirin 81 mg 07/05/24 09:00 07/05/24 09:03 Aspirin 81 Mg PO 81 mg DAILY JANAE Administration Atorvastatin Calcium 40 mg 07/05/24 21:00 Atorvastatin 40 Mg Tab PO HS JANAE Carvedilol 12.5 mg 07/05/24 07:30 07/05/24 09:03 Carvedilol 12.5 Mg Tab PO 12.5 mg BID-W/MEALS JANAE Administration Dextrose/Water 25 ml 07/04/24 21:21 Dextrose 50% Syringe 50 Ml IVP PER PROTOCOL PRN Hypoglycemia Protocol Dextrose/Water 50 ml 07/04/24 21: Dextrose 50% Syringe 50 Ml IVP PER PROTOCOL PRN Hypoglycemia Protocol Enoxaparin Sodium 40 mg 07/05/24 09:00 07/05/24 09:03 Enoxaparin 40 Mg/0.4 Ml Syringe SQ 40 mg DAILY JANAE Administration Insulin Aspart 0 unit 07/05/24 07:30 07/05/24 06:17 Insulin Aspart (Novolog) 100 Unit/Ml Vial SQ Not Given ACHS [facility] Protocol Levothyroxine Sodium 25 mcg 07/05/24 06:30 07/05/24 06:15 Levothyroxine 25 Mcg Tab PO 25 mcg DAILY@0630 JANAE Administration Naloxone HCl 0.2 mg 07/04/24 17:44 Naloxone 0.4 Mg/Ml 1 Ml Vial IV Q2M PRN Opioid Reversal Sacubitril/Valsartan 1 each 07/05/24 09:00 07/05/24 09:03 Sacubitril/Valsartan 24 Mg-26 Mg Tablet PO 1 each BID JANAE Administration Intake and Output 07/04/24 07/05/24 07/05/24 22:59 06:59 14:59 Intake Total 240 Balance 240 Intake: Oral 240 Other: Voiding Method Toilet Toilet # Voids 1 Weight 83.915 kg 83.915 kg 07/04/24 15:42 07/04/24 15:42
[2024-07-05] MEDS ORDERED: LOSARTAN 25 MG TAB PO SCH (12:00)
[2024-07-05 12:26] LABS: Glucose,Whole Blood 172 mg/dL (70-110)
--- NOTE | 2024-07-05 15:00 | P.PN ---
Subjective Progress Note Date: 07/05/24 Hospital course: Patient is a very pleasant 79-year-old male with a past medical history of CAD status post CABG x 4, Ischemic cardiomyopathy, Complete heart block status post pacemaker placement, Hypertension, Hyperlipidemia, Hypothyroidism, Diabetes, and MEREDITH. Presented to the hospital on 07/04/2024 with a chief complaint of dizziness and bilateral upper extremity numbness and weakness. Patient was sent from cardiothoracic surgeons office for evaluation. Upon arrival to our facility, patient underwent evaluation in the emergency department. Vital signs upon arrival show blood pressure 188/75, heart rate 60, respiratory rate 16, temp 97.8 F, and SpO2 of 99% on room air. EKG completed showing atrial paced rhythm at 60 bpm. Chest x-ray completed negative for acute cardiopulmonary process. CT brain negative for acute intracranial process. Labs were completed and reviewed. CBC unremarkable. Coagulation profile normal findings. BMP showing hyperchloremia with chloride of 109 otherwise normal findings. Blood glucose 90. Hemoglobin A1c 6.5%. Magnesium 1.8. Liver profile unremarkable. Troponin less than 0.012. Urinalysis negative for infection. Patient was admitted under our services with consultation to cardiology and neurology. Physical exam: Vital signs reviewed and stable. General: Nontoxic, no distress and appears stated age. Derm: Skin warm and dry, normal coloration for ethnicity. Head: Atraumatic, normocephalic and symmetric. Eyes: EOM's intact, no lid lag, and anicteric sclera Mouth: no lip lesions, mucus membranes moist Cardiovascular: regular rate and rhythm with normal S1S2, systolic murmur, positive posterior tibial pulses bilaterally, and cap refill < 2 seconds. Lungs: Respirations even, regular, and unlabored on room air. Lungs CTA bilaterally, no rhonchi, no rales, no wheezing, and no accessory muscle usage. Abdominal: soft, nontender to palpation, no guarding, no appreciable organomegaly Ext: ROM intact. No gross muscle atrophy, no edema, no contractures Neuro: Speech clear, face symmetrical and CN II-XII grossly intact with no noted focal neuro deficits Psych: Alert and oriented to person, place, time, and situation. Appropriate and pleasant affect. Assessment and Plan of Care: Bilateral upper extremity paresthesias accompanied by weakness and numbness Cervical neck pain, worse on the left, history of cervical spine surgery/fusion -Order placed for CT cervical spine. -Neurochecks every 4 hours -Fall precautions to be maintained. -Symptomatic care and pain management with Tylenol 650 mg every 6 hours as needed for mild to moderate pain and [place] 5/325 mg tablets every 4 hours as needed for moderate to severe pain. -PT/OT consulted. -Neurologist following, discussed case with Dr. Avalos. He is recommending consult to Dr. Hunter, orthospine surgeon. CAD status post CABG x 4 Ischemic cardiomyopathy Complete heart block status post pacemaker placement Hypertension Hyperlipidemia -Continue telemetry monitoring. -Cardiology following, discussed case with dehydrator operator and cardiac SALES ENGAGEMENT MANAGER. -Patient to continue cardiac medication regimen with aspirin 81 mg daily, atorvastatin 40 mg nightly, carvedilol 12.5 mg twice daily, and cardiology starting patient on Entresto 24-26 mg tablets twice daily. -Echocardiogram to be completed. Type II [id number] diabetes mellitus -Hold Glyburide and Metformin and place patient on glycemic protocol with NovoLog sliding scale to maintain tight glycemic control throughout hospitalization. Obstructive sleep apnea CPAP dependent nightly -Continue CPAP nightly and while napping. Hypothyroidism -Continue levothyroxine 25 mcg daily. Data and imaging reviewed -EKG completed showing atrial paced rhythm at 60 bpm. -Chest x-ray completed negative for acute cardiopulmonary process. -CT brain negative for acute intracranial process. -Labs reviewed. CBC unremarkable. Coagulation profile normal findings. BMP showing hyperchloremia with chloride of 109 otherwise normal findings. Blood glucose 90. Hemoglobin A1c 6.5%. Magnesium 1.8. Liver profile unremarkable. Troponin less than 0.012. Urinalysis negative for infection. -Vital signs showing blood pressure 175/72, heart rate 70, respiratory rate 16, temp 97.9 F, and SpO2 of 98% on room air. -Orthostatic vitals also reviewed and negative for orthostatic hypotension. CODE STATUS: Full code DVT prophylaxis: Lovenox Discussed with: Patient, RN, dehydrator operator, cardiac SALES ENGAGEMENT MANAGER, and neurologist Anticipated discharge date: Pending clinical course Anticipated discharge place: Home Patient was seen independently by Nurse Pracitioner. This document was prepared using [employer] dictation software. Please allow for errors in picture painter, while rare they do occur. Dejon Rubio NP rendered care for this patient independently, reviewed the findings and plan as documented in the note above and agree with plan. I did not physically speak with or examine the patient on this date. Objective - Vital Signs Vital signs: Vital Signs Temp 97.9 F 07/05/24 06:59 Pulse 70 07/05/24 06:59 Resp 16 07/05/24 06:59 BP 175/72 07/05/24 06:59 Pulse Ox 98 07/05/24 06:59 FiO2 Intake & Output 07/04/24 07/05/24 07/05/24 18:59 06:59 18:59 Weight 83.915 kg 83.915 kg Other: Voiding Method Toilet # Voids 1 - Labs CBC & Chem 7: 07/04/24 15:42 07/04/24 15:42 Labs: Abnormal Lab Results - Last 24 Hours (Table) 07/04/24 07/04/24 07/05/24 Range/Units 15:42 15:42 06:04 Chloride 109 H (98-107) mmol/L POC Glucose (mg/dL) 128 H (70-110) mg/dL Urine Protein 1+ H (Negative) Urine Mucus Rare H (None) /hpf
[2024-07-05] MEDS ORDERED: HYDROcodone/APAP 5-325MG 1 EACH TAB PO PRN (15:01)
--- NOTE | 2024-07-05 15:12 | P.CNNES ---
History of Present Illness Consult date: 07/05/24 Requesting physician: Ramin Garcia Reason for Consult: dizziness, intermittent bilateral upper extremity numbness and weakness History of Present Illness: This is a 79-year-old gentleman who present emergency department because of numbness of upper extremity from waist up. Patient is accompanied with his [id number] and his brother who are at bedside who helps with the history. Patient is tangential during this examination and appears not consistent at times as well as confused. According to the patient he comes to the hospital because of his recent episode of numbness from the waist up and he felt its mostly involving the upper extremity and head mostly. He said it was very severe. Initially asked him if he had any weakness and he was saying its only numbness then later he stated weakness. He kept on complaining of left neck pain that is rating to the shoulder and that is been going on for at least 3 years but it seems it got worse. He feels his numbness has resolved. Denies any falls but according to the brother he states that he is having recurrent falls and his gait is unsteady. Patient stated that last Monday his whole body was weak and was wobbly then had another episode recently again he was wobbly. Patient does not have any history of seizure. He does not lose consciousness with these falls or urinary or bowel incontinence or tongue bite. According to the patient when he gets up and he is turning her he feels his head jerks a little bit but according to the brother he does not notice any head jerking and he noticed the falls and again no loss of consciousness. Patient does not have any history of stroke but he feels maybe those recent symptoms were TIAs. He does have chronic diabetes mellitus, he has chronic neck pain with surgery in the neck as well as lumbar surgery in the past. He has a history of CABG and had a defibrillator in 2013. Ex tobacco use since 2013. Dry eyes and he follows up with an eyelet riveter and he is complaining with the dry eyes and he lubricant and last time he seen eyelet riveter was 1 year ago. Resides by himself and he feels he is doing well. He denies any falls when he goes outside the house or is in nature. According to the [id number] before his she notified her that patient had neuropsych evaluation for memory issues but patient does not recall that. His has been for a year and a half. He was in tears talking about his but states that he got therapy and feels better. Some of the workup during this hospital visit consisted of: CBC with differential is unremarkable Chemistry panel seems unremarkable. CT of the head is negative for any acute intracranial process. I personally reviewed the CT and agree with the report Review of Systems As per HPI. Past Medical History Past Medical History: Coronary Artery Disease (CAD), Cancer, Diabetes Mellitus, Hyperlipidemia, Hypertension, Myocardial Infarction ([place]), Osteoarthritis (OA), Sleep Apnea/CPAP/BIPAP Additional Past Medical History / Comment(s): PROSTATE CANCER WITH RADIATION & HORMONE TX(2013), SEE CARDIOLOGY H & P., STATES BREASTS ARE SWOLLEN AND SORE (>4 MONTHS) Last Myocardial Infarction Date:: 2008 ? History of Any Multi-Drug Resistant Organisms: None Reported Past Surgical History: Back Surgery, Cholecystectomy, Coronary Bypass/CABG, Heart Catheterization, Orthopedic Surgery, Pacemaker Additional Past Surgical History / Comment(s): CABG X4 in 2008, LOWER BACK, NECK SX X2, FOOT SX X 3, CATARACTS. Past Anesthesia/Blood Transfusion Reactions: No Reported Reaction Type of Cardiac Device: Permanent Pacemaker Device Placement Date:: 2012 Past Psychological History: No Psychological Hx Reported Past Alcohol Use History: None Reported Past Drug Use History: None Reported - Past Family History Brother(s) Family Medical History: Cancer Additional Family Medical History / Comment(s): 2 BROTHERS WITH PROSTATE CA Mother Family Medical History: No Reported History Medications and Allergies Home Medications Medication Instructions Recorded Confirmed Type Glimepiride [Amaryl] 1 mg PO DAILY 10/09/15 07/04/24 History Atorvastatin [Lipitor] 40 mg PO HS 06/22/17 07/04/24 History carvediloL [Coreg] 12.5 mg PO BID 06/22/17 07/04/24 History metFORMIN HCL [Glucophage] 1,000 mg PO BID 06/22/17 07/04/24 History Aspirin 81 mg PO DAILY 07/31/17 07/04/24 History Glimepiride [Amaryl] 2 mg PO HS 07/04/24 07/04/24 History Levothyroxine Sodium [Synthroid] 25 mcg PO DAILY 07/04/24 07/04/24 History Losartan [Cozaar] 25 mg PO DAILY@1200 07/04/24 07/04/24 History Allergies Allergy/AdvReac Type Severity Reaction Status Date / Time No Known Allergies Allergy Verified 07/04/24 19:18 Physical Examination - Vital Signs Vital Signs: Vital Signs Temp Pulse Pulse Pulse Resp BP BP 07/05/24 13:55 98.2 F 60 18 116/67 07/05/24 09:20 07/05/24 06:59 97.9 F 70 16 175/72 07/05/24 03:55 97.9 F 60 16 171/89 07/05/24 03:38 67 18 155/83 07/04/24 23:12 67 18 132/78 07/04/24 21:26 60 20 152/69 07/04/24 18:15 98.3 F 60 15 154/88 07/04/24 17:24 60 14 163/82 07/04/24 16:00 98.2 F 64 16 163/75 07/04/24 15:17 97.8 F 60 16 188/75 BP BP BP Pulse Ox 07/05/24 13:55 94 L 07/05/24 09:20 157/73 182/74 165/85 07/05/24 06:59 98 07/05/24 03:55 98 07/05/24 03:38 96 07/04/24 23:12 98 07/04/24 21:26 96 07/04/24 18:15 07/04/24 17:24 97 07/04/24 16:00 98 07/04/24 15:17 99 Intake and Output 07/04/24 07/05/24 07/05/24 22:59 06:59 14:59 Intake Total 358 Balance 358 Intake: Oral 358 Other: Voiding Method Toilet Toilet # Voids 1 2 Weight 83.915 kg 83.915 kg GENERAL: The patient is sitting in a recliner chair and is not in acute distres s. NEUROLOGICAL: Higher mental function: The patient is awake, alert, oriented to self, place and time. Patient is following commands. No aphasia and no neglect. Cranial nerves: The pupils are round, equal and reactive to light and accommodation. Visual hutchinson are full to confrontation throughout. Extraocular movement is intact no nystagmus is noted. Facial sensation is normal to touch throughout. The facial strength is normal throughout. Hearing is mild to moderate decreased bilaterally to hand rub. Tongue is midline and moved [id number] without any difficulty. No dysarthria is noted. Shoulder shrug is normal bilaterally. Motor: Gait is upon turning some unsteady gait that is subtle otherwise is normal. The strength is 5 over 5 throughout. Normal tone and bulk. Cerebellum: Normal finger to nose bilaterally. Sensation: Sensation is normal to touch throughout. Reflexes (right/left): Biceps 1-2+ bilaterally; triceps 2+/1-2+; brachioradialis 1+ to 2+/1+; patellar2+/2+; ankles1+/1+. Plantars are downgoing bilaterally. Results - Laboratory Findings CBC and BMP: 07/04/24 15:42 07/04/24 15:42 Abnormal Lab Findings: Abnormal Labs 07/04/24 07/04/24 07/04/24 15:42 15:42 15:42 Chloride 109 H POC Glucose (mg/dL) Hemoglobin A1c 6.5 H Urine Protein 1+ H Urine Mucus Rare H 07/05/24 07/05/24 06:04 12:24 Chloride POC Glucose (mg/dL) 128 H 172 H Hemoglobin A1c Urine Protein Urine Mucus Assessment and Plan Assessment: This is a 79-year-old gentleman who present emergency department because of her recent numbness from the waist up and possibly with weakness in the uppers. He is complaining of left neck pain rating to the left shoulder that is worse. He does have chronic neck pain and surgery in the neck as well as lumbar surgery. He is having recurrent falls and according to the brother he has unsteady gait when he turns around. No loss of consciousness with the falls. Acute transient numbness of upper extremity but it is evolving from the waist up unsure exact etiology rule out cervical radiculopathy. Recurrent falls without loss of consciousness of unknown exact etiology. Patient states that he has a brief head jerk with these episodes but according to the brother he did not noticed that and there is no any jerking of any extremities no loss of consciousness, urinary or bowel incontinence. Again unknown cause but this is not typical seizure Chronic neck pain has history of neck surgery Of lumbar surgery Probable underlying dementia and according to the [id number] he was evaluated by neuropsychiatrist that his before she disease notified her that he had a neuropsych evaluation for his memory issues Underlying history of diabetes mellitus type 2 CABG in 2013 Defibrillator in 2013 Ex tobacco use and he stopped in 2013 Plan: CT cervical is pending Cannot have MRI because of defibrillator. I consulted orthopedic surgery team I ordered a routine EEG any seizure discharges because of recurrent falls Ordered orthostatic vitals, vitamin B12, folate, TSH, hemoglobin A1c Recommend the patient to have reevaluation of neuropsych as an outpatient. Patient does not recall about having neuropsych evaluation. I notified to the patient and his family members that I am concerned about his living status lenny ing by himself alone especially with memory issues. Is on aspirin 81 mg, Lipitor 40 mg nightly. Will defer the rest of the medical management to primary other specialist Plan discussed with the patient, his family members (brother, [id number]) and primary team. N.P. Thank you for the consultation. Time with Patient: Greater than 30
--- NOTE | 2024-07-05 16:13 | CA ---
Transthoracic Echo Report Name: Km Amos Age: 79 Gender: M : 1945 Exam Date: 07/05/2024 14:12 Exam Location: [facility] Ht (in): 67 Wt (lb): 185 Ordering Physician: Rabia West Attending/Referring Phys: [id number], Jenna Maintenance Pipefitter Lory Fu, RDMAXIME Procedure CPT: Indications: LV function, dizziness Cardiac Hx: Technical Quality: Fair Contrast 1: Definity Total Dose (mL): 2 Contrast 2: Total Dose (mL): MEASUREMENTS (Male / Female) Normal Values 2D ECHO LV Diastolic Diameter PLAX 5.0 cm 4.2 - 5.9 / 3.9 - 5.3 cm LV Systolic Diameter PLAX 3.3 cm IVS Diastolic Thickness 1.0 cm 0.6 - 1.0 / 0.6 - 0.9 cm LVPW Diastolic Thickness 1.5 cm 0.6 - 1.0 / 0.6 - 0.9 cm LV Relative Wall Thickness 0.5 RV Internal Dim ED PLAX 1.4 cm LVOT Diameter 1.8 cm LA Systolic Diameter LX 3.6 cm 3.0 - 4.0 / 2.7 - 3.8 cm LA Volume 71.4 cm??? 18 - 58 / 22 - 52 cm??? LA Volume Index 35.5 cm???/m??? 16 - 28 cm???/m??? M-MODE Aortic Root Diameter MM 3.4 cm LA Systolic Diameter MM 3.2 cm LA Ao Ratio MM 0.9 AV Cusp Separation MM 2.0 cm DOPPLER AV Peak Velocity 135.6 cm/s AV Peak Gradient 7.4 mmHg AV Mean Velocity 100.0 cm/s AV Mean Gradient 4.5 mmHg AV Velocity Time Integral 34.1 cm MV Area PHT 3.7 cm??? Mitral E Point Velocity 75.6 cm/s Mitral A Point Velocity 84.8 cm/s Mitral E to A Ratio 0.9 MV Deceleration Time 203.2 ms TR Peak Velocity 222.1 cm/s TR Peak Gradient 19.7 mmHg Right Ventricular Systolic Press 23.6 mmHg FINDINGS Left Ventricle Left ventricular ejection fraction is estimated at 30-35%. Left ventricular cavity size normal. Left ventricular wall thickness normal. [place] akinetic. Hypokinetic septum. Right Ventricle Normal right ventricular size and function. Right Atrium Mild right atrial dilatation. Catheter/pacemaker wire in the right atrial cavity. Left Atrium Mildly increased left atrial area. Mitral Valve Structurally normal mitral valve. Mild mitral regurgitation. No mitral stenosis. Aortic Valve Trileaflet aortic valve. Diffuse thickening (sclerosis) of the aortic valve cusps without reduced excursion. No aortic regurgitation. Tricuspid Valve Structurally normal tricuspid valve. Mild tricuspid regurgitation. No tricuspid stenosis. Pulmonic Valve Structurally normal pulmonic valve. Trace pulmonic regurgitation. No pulmonic stenosis. Pericardium No pericardial or pleural effusion. Aorta Normal size aortic root and proximal ascending aorta. CONCLUSIONS LVEF 30 to 35% Akinetic apex Hypokinetic anteroseptum PPM wire in RA and RV Mild biatrial dilatation Sclerotic aortic valve, mild TR, mild MR Previewed by: Dr Reji Hodges (Electronically Signed) Final Date: 05 July 2024 16:11
[2024-07-05 17:27] LABS: Glucose,Whole Blood 184 mg/dL (70-110)
--- NOTE | 2024-07-05 20:41 | P.CNOR ---
History of Present Illness - [facility] Consult date: 07/05/24 Requesting physician: Chris Avalos Consult reason: other (neck pain with unsteady balance and numbness uppers) History of present illness: History of Presenting Illness Patient is a pleasant 79-year-old male that presented to the ER from Dr. Lal's office for an evaluation of dizziness and episodes of bilateral upper extremity numbness. Patient does report a chronic history of cervical pain, although he states that it has increased over the past few months. Patient states that he has increased left lateral cervical pain that occasionally radiates into his upper extremities, associated with numbness. Patient currently denies any cervical pain or numbness to the upper extremities. Patient does admit that he had approximately 3 episodes in the past few weeks of having unsteady gait with dizziness that has since resolved. Patient does report that he lives alone and is independent. He states that approximately a year and a half ago he did lose his to cancer. Patient was very emotional during this time. Patient seen and examined this evening. Patient is resting comfortably in bed. He was able to reposition himself to the edge of bed during exam. Patient does demonstrate mild limited range of motion of the cervical spine. Patient denies any pain or any numbness into the upper extremities at this time. Discussed CT of the cervical spine results with patient. Offered patient the option of surgical intervention, patient states that he is not ready for surgery at this time and he would like to follow-up outpatient. Dr. Hunter will be in to discuss options with patient tomorrow 07/06/24. Review of Systems Pertinent positives and negatives as discussed in HPI, a complete review of systems was performed and all other systems are negative. Physical Examination General: The patient is awake and alert, in no acute distress Skin: Skin is warm and dry with no obvious rashes or lesions. Neck: The neck is supple, there is no tenderness and ROM intact. Cardiovascular: There is a regular rate and rhythm. Respiratory: Respirations are non-labored. Gastrointestinal: Soft, non-distended, non-tender abdomen. Back: There is no tenderness to palpation in the midline, paralumbar, parathoracic or buttocks region. There is no obvious deformity. Musculoskeletal: ROM limited secondary to pain and stiffness from surgical procedure. Right: shoulder abduction 5/5, elbow flexors 5/5, wrist dorsiflexors 5/5. finger abductor 5/5, photography intern 5/5, hip flexor 5/5, knee flexor 5/5, ankle dorsiflexor 5/5, ankle plantarflexion 5/5 and extensor hallucis 5/5. Left: shoulder abduction 5/5, elbow flexors 5/5, wrist dorsiflexors 5/5. finger abductor 5/5, photography intern 5/5, hip flexor 5/5, knee flexor 5/5, ankle dorsiflexor 5/5, ankle plantarflexion 5/5 and extensor hallucis 5/5. Neurological: CN 2-12 intact. There are no obvious motor or sensory deficits. Movement and coordination equal and intact. Sensory exam to light touch intact C5-T1 and intact from L2-S1. Reflexes 2/4 in bilateral upper and lower extremities. Negative Hoffmans, babinski, and clonus signs. Psychiatric: Cooperative, appropriate mood & affect, normal judgment. Assessment CT of the cervical spine taken on 07/05/2024 demonstrates no evidence of any fractures. There is some moderate multilevel degenerative disc disease and joint hypertrophy. This is most pronounced at C5-C7. Moderate bilateral neuroforaminal stenosis at C5-C6 and severe bilateral neuroforaminal stenosis at C6-C7. Cervical spondylosis C5-C7 moderate to severe bilateral neuroforaminal stenosis Left lateral cervicalgia Intermittent bilateral upper extremity radiculopathy L>R. Frequent falls Multiple medical comorbidities Plan At this time we recommend surgical intervention of C5-C7 ACDF. Patient would like to follow-up in office and schedule this procedure. Dr. Hunter will be in to discuss options with patient tomorrow 07/06/24. 2. Appreciate medical management 3. Pain management -continue with current regimen 4. PT/OT - weightbearing as tolerated with a walker as needed. 5. Appreciate consult. I reviewed and discussed this case with my attending Dr. Hunter, whom has reviewed this chart and films and is in agreement with assessment and plan of care as outlined above. I have personally seen and examined the patient, performed the documentation and the assessment and plan as written. Number of minutes spent on the visit: 30m. Past Medical History Past Medical History: Coronary Artery Disease (CAD), Cancer, Diabetes Mellitus, Hyperlipidemia, Hypertension, Myocardial Infarction ([place]), Osteoarthritis (OA), Sleep Apnea/CPAP/BIPAP Additional Past Medical History / Comment(s): PROSTATE CANCER WITH RADIATION & HORMONE TX(2013), SEE CARDIOLOGY H & P., STATES BREASTS ARE SWOLLEN AND SORE (>4 MONTHS) Last Myocardial Infarction Date:: 2008 ? History of Any Multi-Drug Resistant Organisms: None Reported Past Surgical History: Back Surgery, Cholecystectomy, Coronary Bypass/CABG, Heart Catheterization, Orthopedic Surgery, Pacemaker Additional Past Surgical History / Comment(s): CABG X4 in 2009, LOWER BACK, NECK SX X2, FOOT SX X 3, CATARACTS. Past Anesthesia/Blood Transfusion Reactions: No Reported Reaction Type of Cardiac Device: Permanent Pacemaker Device Placement Date:: 2012 Past Psychological History: No Psychological Hx Reported Past Alcohol Use History: None Reported Past Drug Use History: None Reported - Past Family History Brother(s) Family Medical History: Cancer Additional Family Medical History / Comment(s): 2 BROTHERS WITH PROSTATE CA Mother Family Medical History: No Reported History Medications and Allergies Home Medications Medication Instructions Recorded Confirmed Type Glimepiride [Amaryl] 1 mg PO DAILY 10/09/15 07/04/24 History Atorvastatin [Lipitor] 40 mg PO HS 06/22/17 07/04/24 History carvediloL [Coreg] 12.5 mg PO BID 06/22/17 07/04/24 History metFORMIN HCL [Glucophage] 1,000 mg PO BID 06/22/17 07/04/24 History Aspirin 81 mg PO DAILY 07/31/17 07/04/24 History Glimepiride [Amaryl] 2 mg PO HS 07/04/24 07/04/24 History Levothyroxine Sodium [Synthroid] 25 mcg PO DAILY 07/04/24 07/04/24 History Losartan [Cozaar] 25 mg PO DAILY@1200 07/04/24 07/04/24 History Allergies Allergy/AdvReac Type Severity Reaction Status Date / Time No Known Allergies Allergy Verified 07/04/24 19:18 Results - Labs Labs: Abnormal Lab Results - Last 24 Hours (Table) 07/04/24 07/05/24 07/05/24 Range/Units 15:42 06:04 12:24 POC Glucose (mg/dL) 128 H 172 H (70-110) mg/dL Hemoglobin A1c 6.5 H (<=6.0) % 07/05/24 Range/Units 17:25 POC Glucose (mg/dL) 184 H (70-110) mg/dL Hemoglobin A1c (<=6.0) % H & H 07/04/24 Range/Units 15:42 Hgb 13.7 (13.0-17.5) gm/dL Hct 41.3 (39.0-53.0) % Coagulation 07/04/24 Range/Units 15:42 INR 1.1 (<1.2) Result Diagrams: 07/04/24 15:42 07/04/24 15:42
[2024-07-05 20:50] LABS: Glucose,Whole Blood 157 mg/dL (70-110)
[2024-07-05] MEDS: ATORVASTATIN 40 MG TAB PO SCH (21:04)
--- NOTE | 2024-07-05 23:31 | EEG ---
ELECTROENCEPHALOGRAM REPORT CLINICAL HISTORY: This is a 79-year-old gentleman with recurrent falls. The video EEG is obtained to evaluate for seizure epileptiform activity. RELEVANT MEDICATIONS: The patient is not on any antiseizure medication. EEG TYPE: This is a routine 21-channel EEG with video using the 10/20 electrode placement system. DESCRIPTION: Wakefulness and drowsiness are obtained. During awake state, the posterior-dominant rhythm consists of [id number] voltage of 9 to 10 hertz activity that is well modulated and well sustained. There is no physiological stage 2 sleep architecture. There is no focal slowing. Interictal and ictal is none. ACTIVATION PROCEDURE: Photic stimulation did not evoke a posterior driving response. There is no abnormality during the photic stimulation. Hyperventilation is not performed. CLINICAL INTERPRETATION: This is a normal routine EEG. There is no focal slowing, epileptiform discharge, or seizure on the EEG. A normal routine EEG does not rule out underlying epilepsy. Clinical correlation is recommended. JULIO C / JERAMIE: [id number] /
[2024-07-06 05:36] LABS: Glucose,Whole Blood 150 mg/dL (70-110)
--- NOTE | 2024-07-06 10:06 | P.PN ---
Subjective Progress Note Date: 07/06/24 Hospital course: Patient is a very pleasant 79-year-old male with a past medical history of CAD status post CABG x 4, Ischemic cardiomyopathy, Complete heart block status post pacemaker placement, Hypertension, Hyperlipidemia, Hypothyroidism, Diabetes, and MEREDITH. Presented to the hospital on 07/04/2024 with a chief complaint of dizziness and bilateral upper extremity numbness and weakness. Patient was sent from cardiothoracic surgeons office for evaluation. Upon arrival to our facility, patient underwent evaluation in the emergency department. Vital signs upon arrival show blood pressure 188/75, heart rate 60, respiratory rate 16, temp 97.8 F, and SpO2 of 99% on room air. EKG completed showing atrial paced rhythm at 60 bpm. Chest x-ray completed negative for acute cardiopulmonary process. CT brain negative for acute intracranial process. Labs were completed and reviewed. CBC unremarkable. Coagulation profile normal findings. BMP showing hyperchloremia with chloride of 109 otherwise normal findings. Blood glucose 90. Hemoglobin A1c 6.5%. Magnesium 1.8. Liver profile unremarkable. Troponin less than 0.012. Urinalysis negative for infection. Patient was admitted under our services with consultation to cardiology and neurology. Griselda pepe spoke with Dr. Casillas send at 6:42 PM on 07/05/2024 stated patient is scheduled to undergo cervical fusion on Monday. Patient at this time stating he is uncertain. Patient states he thought he was able to leave the hospital and come back Monday morning for surgery because he has things to do. Dr. Casillasson to talk with patient and awaiting back to here further plans for discharge or surgery. Physical exam: Patient seen and fully evaluated at bedside. Patient slightly frustrated this morning stating he thought he was going to be discharged home last night and come back for surgery on Monday. Patient states he wants to talk to the surgeon to further discuss plans. Vital signs reviewed and stable. General: Nontoxic, no distress and appears stated age. Derm: Skin warm and dry, normal coloration for ethnicity. Head: Atraumatic, normocephalic and symmetric. Eyes: EOM's intact, no lid lag, and anicteric sclera Mouth: no lip lesions, mucus membranes moist Cardiovascular: regular rate and rhythm with normal S1S2, systolic murmur, positive posterior tibial pulses bilaterally, and cap refill < 2 seconds. Lungs: Respirations even, regular, and unlabored on room air. Lungs CTA bilaterally, no rhonchi, no rales, no wheezing, and no accessory muscle usage. Abdominal: soft, nontender to palpation, no guarding, no appreciable or ganomegaly Ext: ROM intact. No gross muscle atrophy, no edema, no contractures Neuro: Speech clear, face symmetrical and CN II-XII grossly intact with no noted focal neuro deficits Psych: Alert and oriented to person, place, time, and situation. Appropriate and pleasant affect. Assessment and Plan of Care: Cervical spine stenosis Bilateral upper extremity paresthesias accompanied by weakness and numbness Cervical neck pain, worse on the left, history of cervical spine surgery/fusion -CT cervical spine showing moderate multilevel degenerative disc disease and uncovertebral joint hypertrophy most pronounced at C5-C7 with spinal canal stenosis severe bilateral neuroforaminal stenosis at C6-C7. -Neurochecks every 4 hours -Orthospine surgery consulted, discussed case with Dr. Hunter. Tentative plan is for patient to undergo cervical fusion on 07/08/2024 -Fall precautions to be maintained. -Symptomatic care and pain management with Tylenol 650 mg every 6 hours as needed for mild to moderate pain and [place] 5/325 mg tablets every 4 hours as needed for moderate to severe pain. -PT/OT consulted. -Neurologist following, discussed case with Dr. Avalos. Stated ruled out neurologic causes of bilateral upper extremity paresthesias and weakness, in agreement that this is secondary to cervical spine stenosis and signing off of patient at this time. CAD status post CABG x 4 Ischemic cardiomyopathy Complete heart block status post pacemaker placement Hypertension Hyperlipidemia -Continue telemetry monitoring. -Cardiology following, reviewed documentation in chart -Patient to continue cardiac medication regimen with aspirin 81 mg daily, atorvastatin 40 mg nightly, carvedilol 12.5 mg twice daily, and cardiology starting patient on Entresto 24-26 mg tablets twice daily. -Echocardiogram completed showing a reduced EF of 30 to 35% with hypokinetic anteroseptum, mild biatrial dilation, and sclerotic aortic valve, and mild mitral and tricuspid regurgitation. Type II [id number] diabetes mellitus -Hold Glyburide and Metformin and place patient on glycemic protocol with NovoLog sliding scale to maintain tight glycemic control throughout hospitalization. Obstructive sleep apnea CPAP dependent nightly -Continue CPAP nightly and while napping. Hypothyroidism -Continue levothyroxine 25 mcg daily. Data and imaging reviewed -CT cervical spine showing moderate multilevel degenerative disc disease and uncovertebral joint hypertrophy most pronounced at C5-C7 with spinal canal st enosis severe bilateral neuroforaminal stenosis at C6-C7. -Echocardiogram completed showing a reduced EF of 30 to 35% with hypokinetic anteroseptum, mild biatrial dilation, and sclerotic aortic valve, and mild mitral and tricuspid regurgitation. -EEG showing a normal routine EEG with no focal slowing, epileptiform discharge, or seizure activity reported. -Labs reviewed. CBC unremarkable. BMP showing hyperglycemia with glucose of 153. Magnesium 1.9. Liver profile unremarkable.. -Vital signs showing blood pressure 125/75, heart rate 62, respiratory rate 15, temp 98.0 F, and SpO2 of 97% on room air. -Orthostatic vitals also reviewed and negative for orthostatic hypotension. CODE STATUS: Full code DVT prophylaxis: Lovenox Anticipated discharge date: Pending clinical course Anticipated discharge place: Home Patient was seen independently by Nurse Pracitioner. This document was prepared using [employer] dictation software. Please allow for errors in auto body service mechanic, while rare they do occur. Dejon Rubio NP rendered care for this patient independently, reviewed the findings and plan as documented in the note above and agree with plan. I did not physically speak with or examine the patient on this date. Objective - Vital Signs Vital signs: Vital Signs Temp 98.0 F 07/06/24 07:00 Pulse 62 07/06/24 07:00 Resp 15 07/06/24 07:00 BP 125/75 07/06/24 07:00 Pulse Ox 94 L 07/06/24 08:04 FiO2 Intake & Output 07/05/24 07/06/24 07/06/24 18:59 06:59 18:59 Intake Total 358 Balance 358 Intake: Oral 358 Other: Voiding Method Toilet Toilet # Voids 2 2 - Labs CBC & Chem 7: 07/06/24 05:49 07/06/24 05:49 Labs: Abnormal Lab Results - Last 24 Hours (Table) 07/05/24 07/05/24 07/05/24 Range/Units 12:24 17:25 20:49 POC Glucose (mg/dL) 172 H 184 H 157 H (70-110) mg/dL 07/06/24 Range/Units 05:35 POC Glucose (mg/dL) 150 H (70-110) mg/dL
[2024-07-06] MEDS: DAPAGLIFLOZIN PROPANEDIOL 10 MG TABLET PO SCH (10:07)
[2024-07-06 10:44] LABS: HCT 44.7 % (39.6-50.0); HGB 14.7 g/dL (13.0-17.0); MCH 29.8 pg (27.0-32.0); MCHC 32.9 g/dL (32.0-37.0); MCV 90.5 FL (80.0-97.0); Mean Platelet Volume 11.9 FL (9.5-12.2); NRBC Per 100 WBC 0 X 10*3/uL (0.00-0.01); Platelet Count 203 X 10*3/uL (140-440); RBC 4.94 X 10*6/uL (4.40-5.60); RDW 13.1 % (11.5-14.5); WBC 8.64 X 10*3/uL (4.50-10.00)
--- NOTE | 2024-07-06 10:44 | P.PN ---
Subjective Progress Note Date: 07/06/24 HISTORY OF PRESENT ILLNESS: This is a 79-year-old male with a past medical history significant for coronary artery disease with previous CABG, ischemic cardiomyopathy, complete heart block status post biventricular pacemaker, hypertension, hyperlipidemia, and diabetes. Patient follows in the office with Dr. Brownlee. We have been asked to see the patient in consultation for dizziness. Patient examined at the bedside. Patient was at Dr. Alex Lal's office yesterday for possible LV lead implantation via thorascopic approach. While at this appointment, he told Dr. Lal he had had an episode the day before while driving. He states that he was driving and then he stopped and went to open up the door and suddenly his whole body went numb from the waist up. He denied any motor weakness. He states he was able to walk into his house. He states he had a similar episode last week but it was not as severe. He denied having any chest pain or pressure. Denied any shortness of breath. He denied any issues with his speech or vision. The patient was directed to come to the emergency room. The patient states he has not had any further episodes like this since being in the hospital. Patient's vital signs are stable. Patient's blood pressures have been elevated with a systolic greater than 150 since admission. DIAGNOSTICS: - EKG reveals AV paced rhythm - Chest xray negative for acute process - Laboratory data: WBC 7.9. Hemoglobin 13.7. Platelet count 194. Sodium 141. Potassium 4.5. BUN 20. Creatinine 1.13. Troponin negative x 1. - Current home cardiac medications include losartan 25 mg daily, carvedilol 12.5 mg twice a day, aspirin 81 mg daily, atorvastatin 40 mg at night - Most recent echocardiogram obtained in November 2022 revealing ejection fraction 50%, grade 1 diastolic dysfunction, no LVH - Patient underwent Lexiscan stress test in January 2023 revealing EF of 47% and no evidence of reversible ischemia - Patient underwent CABG in July 2008 with BACA to LAD, radial to PDA, SVG to diagonal, SVG to OM Progress note July 06 Seen and examined at bedside this a.m. Blood pressure controlled, orthostatic vital signs are nonrevealing and appears euvolemic. PHYSICAL EXAM: VITAL SIGNS: Reviewed. GENERAL: Well-developed in no acute distress. HEENT: Head is normocephalic. Pupils are equal, round. Sclerae anicteric. Mucous membranes of the mouth are moist. Neck supple. No JVD or thyromegaly LUNGS: Respirations even and unlabored. Lungs essentially clear to auscultation bilaterally. HEART: Regular rate and rhythm. S1 and S2 heard. ABDOMEN: Soft. Nondistended. Nontender. EXTREMITIES: Normal range of motion. No clubbing or cyanosis. Peripheral pulse s intact. No lower extremity edema NEUROLOGIC: Awake and alert. Oriented x 3. ASSESSMENT: Episode of numbness from the waist up, without loss of motor skills, etiology unclear Coronary artery disease with previous four-vessel CABG, 2007 Ischemic cardiomyopathy History of complete heart block status post biventricular pacemaker, [facility] [facility] Hypertension, uncontrolled Hyperlipidemia Diabetes Hypothyroidism History of TIA, per patient Echocardiogram showed an EF of 30 to 35%, apical hypokinesia, septal hypokinesia consistent with prior open heart surgery. PLAN: He does have deterioration of his LVEF since he is not getting biventricularly paced as his LV pacemaker lead has been turned off. He is 99% RV paced. No reported VT or tacky or bradycardia arrhythmias that was explain his syncope or passing out. Orthostatic vital signs were nonrevealing Continue Entresto 24-26 mg twice a day. Add Farxiga 10 mg daily Continue other GDMT. He needs outpatient evaluation for epicardial pacing of LV to optimize LV / rv synchrony Apparently he is getting evaluated for spinal stenosis surgery. Consult Dr. Lal and see if he is willing to perform epicardial pacing before his spinal stenosis surgery Objective - Vital Signs Vital signs: Vital Signs Temp 98.0 F 07/06/24 07:00 Pulse 62 07/06/24 07:00 Resp 15 07/06/24 07:00 BP 125/75 07/06/24 07:00 Pulse Ox 94 L 07/06/24 08:04 FiO2 Intake & Output 07/05/24 07/06/24 07/06/24 18:59 06:59 18:59 Intake Total 358 Balance 358 Intake: Oral 358 Other: Voiding Method Toilet Toilet # Voids 2 2 - Labs CBC & Chem 7: 07/04/24 15:42 07/04/24 15:42 Labs: Abnormal Lab Results - Last 24 Hours (Table) 07/05/24 07/05/24 07/05/24 Range/Units 12:24 17:25 20:49 POC Glucose (mg/dL) 172 H 184 H 157 H (70-110) mg/dL 07/06/24 Range/Units 05:35 POC Glucose (mg/dL) 150 H (70-110) mg/dL
[2024-07-06 10:52] LABS: ALT 21 U/L (10-49); AST 18 U/L (14-35); Albumin 4.3 g/dL (3.8-4.9); Albumin/Globulin Ratio 2.39 Ratio (1.60-3.17); Alkaline Phosphatase 58 U/L (41-126); Blood Urea Nitrogen 18.4 mg/dL (9.0-27.0); Calcium 9.2 mg/dL (8.7-10.3); Carbon Dioxide 24.2 mmol/L (21.6-31.8); Chloride 105 mmol/L (96-109); Globulin 1.8 g/dL (1.6-3.3); Glucose 153 mg/dL (70-110); Magnesium 1.9 mg/dL (1.5-2.4); Potassium 4.5 mmol/L (3.5-5.5); Sodium 141 mmol/L (135-145); Total Bilirubin 0.5 mg/dL (0.3-1.2); Total Protein 6.1 g/dL (6.2-8.2)
[2024-07-06 12:13] LABS: Glucose,Whole Blood 245 mg/dL (70-110)
[2024-07-06] MEDS ORDERED: ALPRAZolam 0.25 MG TAB PO PRN (13:51)
[2024-07-06] MEDS: MAGNESIUM CITRATE 296 ML BOTTLE PO ONE (14:58)
--- NOTE | 2024-07-06 15:16 | P.PN ---
Subjective Progress Note Date: 07/06/24 I am following up with the patient and he feels he is doing well. It seems that orthopedic has evaluated him they are recommending surgical intervention with a C5-C7 ACDF. Objective - Vital Signs Vital signs: Vital Signs Temp 98.4 F 07/06/24 15:00 Pulse 70 07/06/24 15:00 Resp 16 07/06/24 15:00 BP 102/68 07/06/24 15:00 Pulse Ox 97 07/06/24 15:00 FiO2 Intake & Output 07/05/24 07/06/24 07/06/24 18:59 06:59 18:59 Intake Total 358 Balance 358 Intake: Oral 358 Other: Voiding Method Toilet Toilet # Voids 2 2 2 - Exam GENERAL: The patient is sitting in a recliner chair and is not in acute distress. NEUROLOGICAL: Higher mental function: The patient is awake, alert, oriented to self, place and time. Patient is following commands. No aphasia and no neglect. Cranial nerves: The pupils are round, equal and reactive to light and ac commodation. Visual hutchinson are full to confrontation throughout. Extraocular movement is intact no nystagmus is noted. Facial sensation is normal to touch throughout. The facial strength is normal throughout. Hearing is mild to moderate decreased bilaterally to hand rub. Tongue is midline and moved [id number] without any difficulty. No dysarthria is noted. Shoulder shrug is normal bilaterally. Motor: Gait is upon turning some unsteady gait that is subtle otherwise is normal. The strength is 5 over 5 throughout. Normal tone and bulk. Cerebellum: Normal finger to nose bilaterally. Sensation: Sensation is normal to touch throughout. Reflexes (right/left): Biceps 1-2+ bilaterally; triceps 2+/1-2+; brachioradialis 1+ to 2+/1+; patellar2+/2+; ankles1+/1+. Plantars are downgoing bilaterally. Some of the workup during this hospital visit consisted of: CBC with differential is unremarkable Chemistry panel seems unremarkable. Vitamin B12 is 769 Serum folate is 14.80 TSH is 2.[address] is 6.50. CT of the head is negative for any acute intracranial process. I personally reviewed the CT and agree with the report Routine EEG: Is normal. CT cervical spine: Reported as no evidence of cervical spine fracture. Moderate multilevel degenerative disc disease and uncovertebral joint hypertrophy. Post pronounced at C5-C7. 2D echo: Ejection fraction of 30 to 35%. Akinetic apex. Hypokinetic anterior septum. Sclerotic aortic valve. - Labs CBC & Chem 7: 07/06/24 05:49 07/06/24 05:49 Labs: Abnormal Lab Results - Last 24 Hours (Table) 07/05/24 07/05/24 07/06/24 Range/Units 17:25 20:49 05:35 Glucose (70-110) mg/dL POC Glucose (mg/dL) 184 H 157 H 150 H (70-110) mg/dL Total Protein (6.2-8.2) g/dL 07/06/24 07/06/24 Range/Units 05:49 12:11 Glucose 153 H (70-110) mg/dL POC Glucose (mg/dL) 245 H (70-110) mg/dL Total Protein 6.1 L (6.2-8.2) g/dL Assessment and Plan Assessment: This is a 79-year-old gentleman who present emergency department because of her recent numbness from the waist up and possibly with weakness in the uppers. He is complaining of left neck pain rating to the left shoulder that is worse. He does have chronic neck pain and surgery in the neck as well as lumbar surgery. He is having recurrent falls and according to the brother he has unsteady gait when he turns around. No loss of consciousness with the falls. Acute transient numbness of upper extremity but it is evolving from the waist: seems more cervical radiculopathy. This does not appear typical cva/tia. Cervical spondylosis with moderate to severe bilateral neuroforaminal stenosis over C5-C7 and appears he has radiculopathy of the cervical spine left more than the right. Recurrent falls without loss of consciousness of unknown exact etiology. Patient states that he has a brief head jerk with these episodes but according to the brother he did not noticed that and there is no any jerking of any ex tremities no loss of consciousness, urinary or bowel incontinence. Again unknown cause but this is not typical seizure. Routine EEG is normal. Chronic neck pain has history of neck surgery Of lumbar surgery Probable underlying dementia and according to the [id number] he was evaluated by neuropsychiatrist that his before she disease notified her that he had a neuropsych evaluation for his memory issues Underlying history of diabetes mellitus type 2 CABG in 2013 Defibrillator in 2013 Ex tobacco use and he stopped in 2012 Plan: Orthopedic team is considering ACDF of C5 C7 this coming up Monday. Cannot have MRI because of defibrillator. Recommend the patient to have reevaluation of neuropsych as an outpatient. Patient does not recall about having neuropsych evaluation. I notified to the patient and his family members that I am concerned about his living status living by himself alone especially with memory issues. Recommend EMG with nerve conduction study of uppers as an outpatient. Is on aspirin 81 mg, Lipitor 40 mg nightly. Will defer the rest of the medical management to primary other specialist Plan discussed with the patient, his family members (sister and grand-daughter) and primary team. N.P. No further neurological workup. Will sign off. Please reconsult if needed. Time with Patient: Less than 30
[2024-07-06] MEDS ORDERED: ONDANSETRON 4 MG/2 ML VIAL IVP PRN (16:32)
[2024-07-06 17:00] LABS: Glucose,Whole Blood 161 mg/dL (70-110)
[2024-07-06] MEDS: ALPRAZolam 0.5 MG TAB PO SCH (21:28)
[2024-07-06] MEDS: MELATONIN 3 MG TABLET PO SCH (21:28)
[2024-07-06 21:35] LABS: Glucose,Whole Blood 141 mg/dL (70-110)
[2024-07-07 06:06] LABS: Glucose,Whole Blood 130 mg/dL (70-110)
[2024-07-07] MEDS ORDERED: LIDOCAINE 1% (10MG/ML) FOR IV START INTRADERMA PRN (07:47)
--- NOTE | 2024-07-07 09:01 | P.PN ---
Subjective Progress Note Date: 07/07/24 HISTORY OF PRESENT ILLNESS: This is a 79-year-old male with a past medical history significant for coronary artery disease with previous CABG, ischemic cardiomyopathy, complete heart block status post biventricular pacemaker, hypertension, hyperlipidemia, and diabetes. Patient follows in the office with Dr. Brownlee. We have been asked to see the patient in consultation for dizziness. Patient examined at the bedside. Patient was at Dr. Alex Lal's office yesterday for possible LV lead implantation via thorascopic approach. While at this appointment, he told Dr. Lal he had had an episode the day before while driving. He states that he was driving and then he stopped and went to open up the door and suddenly his whole body went numb from the waist up. He denied any motor weakness. He states he was able to walk into his house. He states he had a similar episode last week but it was not as severe. He denied having any chest pain or pressure. Denied any shortness of breath. He denied any issues with his speech or vision. The patient was directed to come to the emergency room. The patient states he has not had any further episodes like this since being in the hospital. Patient's vital signs are stable. Patient's blood pressures have been elevated with a systolic greater than 150 since admission. DIAGNOSTICS: - EKG reveals AV paced rhythm - Chest xray negative for acute process - Laboratory data: WBC 7.9. Hemoglobin 13.7. Platelet count 194. Sodium 141. Potassium 4.5. BUN 20. Creatinine 1.13. Troponin negative x 1. - Current home cardiac medications include losartan 25 mg daily, carvedilol 12.5 mg twice a day, aspirin 81 mg daily, atorvastatin 40 mg at night - Most recent echocardiogram obtained in November 2022 revealing ejection fraction 50%, grade 1 diastolic dysfunction, no LVH - Patient underwent Lexiscan stress test in January 2023 revealing EF of 47% and no evidence of reversible ischemia - Patient underwent CABG in July 2008 with BACA to LAD, radial to PDA, SVG to diagonal, SVG to OM Progress note July 06 Seen and examined at bedside this a.m. Blood pressure controlled, orthostatic vital signs are nonrevealing and appears euvolemic. July 07 Seen and examined at bedside this a.m. Blood pressure controlled, tolerating GDMT PHYSICAL EXAM: VITAL SIGNS: Reviewed. GENERAL: Well-developed in no acute distress. HEENT: Head is normocephalic. Pupils are equal, round. Sclerae anicteric. Mucous membranes of the mouth are moist. Neck supple. No JVD or thyromegaly LUNGS: Respirations even and unlabored. Lungs essentially clear to auscultation bilaterally. HEART: Regular rate and rhythm. S1 and S2 heard. ABDOMEN: Soft. Nondistended. Nontender. EXTREMITIES: Normal range of motion. No clubbing or cyanosis. Peripheral pulses intact. No lower extremity edema NEUROLOGIC: Awake and alert. Oriented x 3. ASSESSMENT: Episode of numbness from the waist up, without loss of motor skills, etiology unclear Coronary artery disease with previous four-vessel CABG, 2007 Ischemic cardiomyopathy History of complete heart block status post biventricular pacemaker, [facility] [facility] Hypertension, uncontrolled Hyperlipidemia Diabetes Hypothyroidism History of TIA, per patient Recent cardiac test Echocardiogram showed an EF of 30 to 35%, apical hypokinesia, septal hypokinesia consistent with prior open heart surgery. echocardiogram obtained in November 2022 revealing ejection fraction 50%, grade 1 diastolic dysfunction, no LVH PLAN: He does have deterioration of his LVEF since he is not getting biventricularly paced as his LV pacemaker lead has been turned off. He is 99% RV paced. No reported VT or tacky or bradycardia arrhythmias that was explain his syncope or passing out. Orthostatic vital signs were nonrevealing Added Entresto 24-26 mg twice a day and Farxiga 10 mg daily on this admission. Continue other GDMT. He needs outpatient evaluation for epicardial pacing of LV to optimize LV / rv synchrony Apparently he is getting evaluated for spinal stenosis surgery. At this time patient is cleared from cardiac standpoint. Patient can be discharged with recommended outpatient follow-up with primary science center display builder. Await orthopedics recommendation on when planning for spinal decompression surgery. Objective - Vital Signs Vital signs: Vital Signs Temp 97.5 F L 07/07/24 06:51 Pulse 76 07/07/24 06:51 Resp 18 07/07/24 06:51 BP 120/70 07/07/24 06:51 Pulse Ox 96 07/07/24 06:51 FiO2 Intake & Output 07/06/24 07/07/24 07/07/24 18:59 06:59 18:59 Other: Voiding Method Toilet Toilet # Voids 2 3 - Labs CBC & Chem 7: 07/06/24 05:49 07/06/24 05:49 Labs: Abnormal Lab Results - Last 24 Hours (Table) 07/06/24 07/06/24 07/06/24 Range/Units 05:49 12:11 16:59 Glucose 153 H (70-110) mg/dL POC Glucose (mg/dL) 245 H 161 H (70-110) mg/dL Total Protein 6.1 L (6.2-8.2) g/dL 07/06/24 07/07/24 Range/Units 21:32 06:04 Glucose (70-110) mg/dL POC Glucose (mg/dL) 141 H 130 H (70-110) mg/dL Total Protein (6.2-8.2) g/dL
--- NOTE | 2024-07-07 09:01 | P.GSCN ---
History of Present Illness Consult date: 07/07/24 Reason for Consult: Possible LV lead implantation via thorascopic approach, history of BiV pacemaker implantation, as an exit block of his LV lead as well as thrombus of the left subclavian vein. Requesting physician: Reji Hodges History of present illness: This is a 79-year-old gentleman who follows with the primary care physician in [place], [place], the patient cannot remember his name at this moment. He also follows with Dr. Brownlee for his BiV pacemaker. 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 On July 04, 2024 the patient was being evaluated at Dr. Alex Lal office for possible LV lead implantation via thoracoscopic approach. During Dr. Lal's evaluation the patient reports that he had an episode when he parked his car, his whole body suddenly went numb and he could not move for over 3 minutes. Subsequently, the numbness resolved on its own and due to this episode Dr. Lal requested he presented to the emergency department here at [facility] for further evaluation. The patient reports he also had a similar episode 1 week ago while watching football and another episode around 3 weeks prior. He denies any recent fever, chills, nausea, vomiting, constipation, diarrhea, visual disturbances, headache, palpitations, chest pain, shortness of breath, presyncope or syncope. Initial laboratory results showed a WBC count of 7.9, hemoglobin 13.7, hematocrit 41.3, platelets 194, PT 12.2, INR 1.1, PTT 22.9, sodium 141, potassium 4.5, BUN 20, creatinine 1.13, hemoglobin A1c 6.5, glucose 90, troponins less than 0.012, and TSH 2.470. A twelve-lead EKG was completed which showed a paced rhythm with a heart rate of 60 bpm. Due to the patient's symptoms a CT scan of the brain was completed which showed no acute intracranial process. A chest x-ray was completed which showed no acute cardiopulmonary disease/process. For further evaluation a CT scan of the cervical spine without contrast was completed which showed no evidence of cervical spine fracture, but did reveal moderate multilevel degenerative disc disease and uncovertebral joint hypertrophy, most pronounced at C5-C7. Yesterday July 05, 2024 a transthoracic 2D echocardiogram was completed which showed a left ventricular ejection fraction of 30 to 35%, mild mitral valve regurgitation, mild tricuspid valve regurgitation, no pericardial effusion and a normal size aortic root and proximal ascending aorta. Due to the patient's presenting symptoms and findings on the CT scan of the cervical spine a consult was placed to Dr. Casillas's and from orthopedics for further evaluation. Dr. Casillas sent met with the patient and recommended surgical intervention of C5-C7 anterior cervical discectomy and fusion. Subsequently, due to the patient's need for possible LV lead implantation via thoracoscopic approach a consult was placed to Dr. Alex Lal from cardiothoracic surgery for further evaluation and treatment recommendations. Review of Systems A review of systems was completed and was negative except as mentioned in the HPI. Past Medical History Past Medical History: Coronary Artery Disease (CAD), Cancer (Prostate), Diabetes Mellitus, Hyperlipidemia, Hypertension, Myocardial Infarction (UT), Osteoarthritis (OA), Prostate Disorder, Sleep Apnea/CPAP/BIPAP, Thyroid Disorder Additional Past Medical History / Comment(s): PROSTATE CANCER WITH RADIATION & HORMONE TX(2013), SEE CARDIOLOGY H & P., STATES BREASTS ARE SWOLLEN AND SORE (>4 MONTHS), thrombosis of his left subclavian vein Last Myocardial Infarction Date:: 2008 ? History of Any Multi-Drug Resistant Organisms: None Reported Past Surgical History: Back Surgery, Cholecystectomy, Coronary Bypass/CABG, Heart Catheterization, Orthopedic Surgery, Pacemaker Additional Past Surgical History / Comment(s): CABG X4 in 2008, LOWER BACK, NECK SX X2, FOOT SX X 3, CATARACTS. Past Anesthesia/Blood Transfusion Reactions: No Reported Reaction Type of Cardiac Device: Permanent Pacemaker Device Placement Date:: 2012 Past Psychological History: No Psychological Hx Reported Smoking Status: Former smoker Past Alcohol Use History: Rare Past Drug Use History: Marijuana (Daily marijuana use, takes a gummy every night for insomnia) - Past Family History Brother(s) Family Medical History: Cancer Additional Family Medical History / Comment(s): 2 BROTHERS WITH PROSTATE CA Mother Family Medical History: No Reported History Medications and Allergies Home Medications Medication Instructions Recorded Confirmed Type Glimepiride [Amaryl] 1 mg PO DAILY 10/09/15 07/04/24 History Atorvastatin [Lipitor] 40 mg PO HS 06/22/17 07/04/24 History carvediloL [Coreg] 12.5 mg PO BID 06/22/17 07/04/24 History metFORMIN HCL [Glucophage] 1,000 mg PO BID 06/22/17 07/04/24 History Aspirin 81 mg PO DAILY 07/31/17 07/04/24 History Glimepiride [Amaryl] 2 mg PO HS 07/04/24 07/04/24 History Levothyroxine Sodium [Synthroid] 25 mcg PO DAILY 07/04/24 07/04/24 History Losartan [Cozaar] 25 mg PO DAILY@1200 07/04/24 07/04/24 History Allergies Allergy/AdvReac Type Severity Reaction Status Date / Time No Known Allergies Allergy Verified 07/04/24 19:18 Surgical - Exam Vital Signs Temp Pulse Resp BP Pulse Ox 97.8 F 60 16 188/75 99 07/04/24 15:17 07/04/24 15:17 07/04/24 15:17 07/04/24 15:17 07/04/24 15:17 - General well developed, well nourished, no pain - Eyes PERRL, normal ocular movement, no pale, no icteric - ENT normal pinna, normal nares, normal mucosa, no hearing loss, no congestion - Neck Neck is supple, no lymphadenopathy. no masses, no bruits, trachea midline, no venous distension - Respiratory Lung sounds essentially clear throughout, no wheezes, rhonchi or crackles. Respirations are symmetrical and nonlabored. - Cardiovascular Regular rhythm and rate. S1 and S2 present, negative for S3, gallop or murmur. - Abdomen Abdomen is soft, nontender and nondistended. Active bowel sounds present all 4 abdominal quadrants. No guarding or rigidity. No organomegaly appreciated. - Genitourinary Deferred - Rectum Deferred - Integumentary Skin is warm and dry. No clubbing or cyanosis is present. no rash, no growths, no abnormal pigmentation - Neurologic No focal deficits. - Musculoskeletal Moves all 4 extremities with equal strength bilateral. normal gait - Psychiatric oriented to time, oriented to person, oriented to place, speech is normal, memory intact Results - Labs 07/06/24 05:49 07/06/24 05:49 Abnormal Lab Results - Last 24 Hours (Table) 07/06/24 07/06/24 07/06/24 Range/Units 05:49 12:11 16:59 Glucose 153 H (70-110) mg/dL POC Glucose (mg/dL) 245 H 161 H (70-110) mg/dL Total Protein 6.1 L (6.2-8.2) g/dL 07/06/24 07/07/24 Range/Units 21:32 06:04 Glucose (70-110) mg/dL POC Glucose (mg/dL) 141 H 130 H (70-110) mg/dL Total Protein (6.2-8.2) g/dL Diabetes panel 07/06/24 Range/Units 05:49 Sodium 141 (135-145) mmol/L Potassium 4.5 (3.5-5.5) mmol/L Chloride 105 (96-109) mmol/L Carbon Dioxide 24.2 (21.6-31.8) mmol/L BUN 18.4 (9.0-27.0) mg/dL Creatinine 1.0 (0.6-1.5) mg/dL Glucose 153 H (70-110) mg/dL Calcium 9.2 (8.7-10.3) mg/dL AST 18 (14-35) U/L ALT 21 (10-49) U/L Alkaline Phosphatase 58 (41-126) U/L Total Protein 6.1 L (6.2-8.2) g/dL Albumin 4.3 (3.8-4.9) g/dL Calcium panel 07/06/24 Range/Units 05:49 Calcium 9.2 (8.7-10.3) mg/dL Albumin 4.3 (3.8-4.9) g/dL Pituitary panel 07/06/24 Range/Units 05:49 Sodium 141 (135-145) mmol/L Potassium 4.5 (3.5-5.5) mmol/L Chloride 105 (96-109) mmol/L Carbon Dioxide 24.2 (21.6-31.8) mmol/L BUN 18.4 (9.0-27.0) mg/dL Creatinine 1.0 (0.6-1.5) mg/dL Glucose 153 H (70-110) mg/dL Calcium 9.2 (8.7-10.3) mg/dL Adrenal panel 07/06/24 Range/Units 05:49 Sodium 141 (135-145) mmol/L Potassium 4.5 (3.5-5.5) mmol/L Chloride 105 (96-109) mmol/L Carbon Dioxide 24.2 (21.6-31.8) mmol/L BUN 18.4 (9.0-27.0) mg/dL Creatinine 1.0 (0.6-1.5) mg/dL Glucose 153 H (70-110) mg/dL Calcium 9.2 (8.7-10.3) mg/dL Total Bilirubin 0.5 (0.3-1.2) mg/dL AST 18 (14-35) U/L ALT 21 (10-49) U/L Alkaline Phosphatase 58 (41-126) U/L Total Protein 6.1 L (6.2-8.2) g/dL Albumin 4.3 (3.8-4.9) g/dL - Imaging EKG: image reviewed Assessment and Plan Assessment: Episodes of numbness from the waist up with loss of motor skills, CT scan cervical spine shows C5-C7 moderate to severe bilateral neuroforamial stenosis History of complete heart block, status post biventricular pacemaker placement [facility] in 2012 Ischemic cardiomyopathy, recent transthoracic 2D echocardiogram showing an ejection fraction of 30 to 35% Coronary artery disease with previous myocardial vascularization surgery in 2012 History of hypertension Hyperlipidemia Diabetes mellitus type 2 History of myocardial infarction Hypothyroidism Obstructive sleep apnea Insomnia with daily marijuana use Remote history of nicotine dependence quit smoking in 2012 History of prostate cancer Plan: The patient was seen and examined at his bedside on the fourth floor medical surgical unit. His chart and diagnostics reviewed. His case was discussed in detail with Dr. Alex Lal from cardiothoracic surgery. The patient is currently not having any symptoms of heart failure. He denies any complaints of shortness of breath at this time. Dr. Lal is out of town this next week. The patient can follow-up with the patient in an outpatient setting. Dr. Hodges from cardiology was notified and will speak to the patient's primary department of mathematics chair Dr. Brownlee. Medical management and other comorbidities per primary care service. We will continue to follow the patient on an as-needed basis, please feel free to reconsult. Thank you Dr. Hodges for this consult. I have personally seen and examined the patient, performed the documentation and the assessment and plan as written. Number of minutes spent on the visit: 30. HANDY Zhao
[2024-07-07 09:28] LABS: HGB 15.3 g/dL (13.0-17.0); MCH 29.5 pg (27.0-32.0); MCHC 33.3 g/dL (32.0-37.0); MCV 88.8 FL (80.0-97.0); Mean Platelet Volume 11.6 FL (9.5-12.2); NRBC Per 100 WBC 0 X 10*3/uL (0.00-0.01); Platelet Count 190 X 10*3/uL (140-440); RBC 5.18 X 10*6/uL (4.40-5.60); RDW 13.1 % (11.5-14.5)
[2024-07-07] MEDS: ONDANSETRON 4 MG/2 ML VIAL IVP ONE (09:37)
[2024-07-07] MEDS: LACTATED RINGERS 1,000 ML IV SCH (09:37)
[2024-07-07] MEDS: droPERidol 5 MG/2 ML VIAL IVP ONE (09:37)
--- NOTE | 2024-07-07 10:06 | P.PN ---
Subjective Progress Note Date: 07/06/24 [facility] Progress Note SUBJECTIVE: Patient seen and examined today in the room he seems to be in some distress as he just had some magnesium citrate as he is having difficulty with going to the bathroom. He did have a lot of nausea and then started vomiting during the exam which cut it short. Patient states that he is not having a lot of symptoms right now however he did present with left-sided upper extremity weakness as well as left-sided neck and what seems like facial numbness at the time he states that is hard to remember because he was somewhat scared as he thought he was having a stroke. The patient has had TIAs in the past. He says it does feel somewhat similar. He states he continues to have weakness of his upper extremity. He is left-handed. He denies any other issues right now no blurriness or vision changes headaches however he is very nauseous. OBJECTIVE: Vital signs stable at this time General: AOX3, NAD Incision CDI Motor Exam: RUE: 4+/5 SA, EF, EE, WF, WE, Intrinsic, 4-Plant And Maintenance Technician LUE: 4+/5 SA, EF, EE, WF, WE, Intrinsic, 5 Plant And Maintenance Technician RLE: 5/5 HF, KE, KF, DF, PF, EHL, FHL LLE: 5/5 HF, KE, KF, DF, PF, EHL, FH Reflexes: 2/4 in UE and LE b/l SILT C5-T1 and L2-S1 Dermatomal deficit: NONE +distal pulses palpable Negative hoffmans b/l Negative babinski b/l No clonus ASSESSMENT: 79-year-old male with history of TIA with complaints of upper extremity weakness and paresthesias Complex medical patient with multiple medical comorbidities History of TIA in the past PLAN: -I discussed with the patient at length different options for treatment unfortunately during her exam he became very nauseous and started vomiting which cut our exam somewhat short. However I did tell him at the time that his symptoms seem to be slightly more related to what would seem like a TIA as opposed to cervical radiculopathy however there can be some overlap with the symptoms. His CT scans do show postoperative changes C5-7 with a noninstrumented anterior cervical discectomy and fusion that was done several years prior there is likely pseudoarthrosis in this area as there is no full fusion which is causing posterior osteophytic changes which is causing central stenosis specifically C5-C6 and C6-C7 this is moderate to severe in nature. I discussed this with the patient. This could be a reason for some of his symptoms however it does not seem to be all-encompassing for his symptoms. At this time I would favor conservative measures. He is on the schedule for 07/08/2024 for possible revision ACDF with decompression and fusion h owever if the patient continues to have poor clinical signs in regards to his medical conditions we will likely have to postpone this. It depends on the patient's wishes as well would likely favor conservative measures over surgical measures at this point. He seems to be doing okay and his symptoms have somewhat resolved could treat on an outpatient basis. -PT/OT, OK for up and about. NO RESTRICTIONS AT THIS TIME. -TEDs, SCDs, Early ambulation -Recommend Decadron if able if not then oral steroids possibly -For radiculopathy recommend gabapentin or anti-inflammatories as appropriate -Pain control if needed -We will reassess tomorrow morning but will likely continue with conservative measures with outpatient follow-up. Objective - Vital Signs Vital signs: Vital Signs Temp 97.5 F L 07/07/24 06:51 Pulse 76 07/07/24 06:51 Resp 18 07/07/24 06:51 BP 120/70 07/07/24 06:51 Pulse Ox 96 07/07/24 06:51 FiO2 Intake & Output 07/06/24 07/07/24 07/07/24 18:59 06:59 18:59 Other: Voiding Method Toilet Toilet # Voids 2 3 - Labs CBC & Chem 7: 07/07/24 03:42 07/06/24 05:49 Labs: Abnormal Lab Results - Last 24 Hours (Table) 07/06/24 07/06/24 07/06/24 Range/Units 05:49 12:11 16:59 WBC (4.50-10.00) X 10*3/uL Glucose 153 H (70-110) mg/dL POC Glucose (mg/dL) 245 H 161 H (70-110) mg/dL Total Protein 6.1 L (6.2-8.2) g/dL 07/06/24 07/07/24 07/07/24 Range/Units 21:32 03:42 06:04 WBC 10.30 H (4.50-10.00) X 10*3/uL Glucose (70-110) mg/dL POC Glucose (mg/dL) 141 H 130 H (70-110) mg/dL Total Protein (6.2-8.2) g/dL
[2024-07-07 10:40] LABS: Magnesium 2.6 mg/dL (1.5-2.4)
[2024-07-07 10:50] LABS: ALT 40 U/L (10-49); AST 29 U/L (14-35); Albumin 4.3 g/dL (3.8-4.9); Albumin/Globulin Ratio 2.15 Ratio (1.60-3.17); Alkaline Phosphatase 65 U/L (41-126); BUN/Creat Ratio 20.45 Ratio (12.00-20.00); Blood Urea Nitrogen 22.5 mg/dL (9.0-27.0); Calcium 9.1 mg/dL (8.7-10.3); Carbon Dioxide 22.4 mmol/L (21.6-31.8); Chloride 104 mmol/L (96-109); Glucose 139 mg/dL (70-110); Potassium 4.1 mmol/L (3.5-5.5); Sodium 141 mmol/L (135-145); Total Bilirubin 0.7 mg/dL (0.3-1.2); Total Protein 6.3 g/dL (6.2-8.2)
[2024-07-07 12:04] LABS: Glucose,Whole Blood 168 mg/dL (70-110)
--- NOTE | 2024-07-07 13:02 | P.PN ---
Subjective Progress Note Date: 07/07/24 Principal diagnosis: neck pain with unsteady balance and numbness bilateral upper extremities Patient seen and examined this morning. Patient is resting comfortably in bed. Patient is ambulatory and independent within room. Patient does continue to report left lateral cervical pain that radiates into his bilateral upper extremities with some weakness. Patient does report that yesterday he had mag citrate to assist with moving his bowels, although it made him very nauseated and vomit, these symptoms have since resolved. Patient states that he is looking forward to his cervical surgery that is scheduled for tomorrow 07/08/2024. Patient will be n.p.o. at midnight. No acute concerns. Objective - Vital Signs Vital signs: Vital Signs Temp 97.5 F L 07/07/24 06:51 Pulse 76 07/07/24 06:51 Resp 18 07/07/24 06:51 BP 120/70 07/07/24 06:51 Pulse Ox 96 07/07/24 06:51 FiO2 Intake & Output 07/06/24 07/07/24 07/07/24 18:59 06:59 18:59 Other: Voiding Method Toilet Toilet # Voids 2 3 - Exam General: The patient is awake and alert, in no acute distress Skin: Skin is warm and dry with no obvious rashes or lesions. Neck: The neck is supple, there is limited ROM with rotation to the left. Cardiovascular: There is a regular rate and rhythm. Respiratory: Respirations are non-labored. Gastrointestinal: Soft, non-distended, non-tender abdomen. Back: There is no tenderness to palpation in the midline, paralumbar, parathoracic or buttocks region. There is no obvious deformity. Musculoskeletal: ROM limited secondary to pain Right: shoulder abduction 4/5, elbow flexors 4/5, wrist dorsiflexors 4/5. finger abductor 4/5, it systems administrator 4/5, hip flexor 5/5, knee flexor 5/5, ankle dorsiflexor 5/5, ankle plantarflexion 5/5 and extensor hallucis 5/5. Left: shoulder abduction 4/5, elbow flexors 4/5, wrist dorsiflexors 4/5. finger abductor 4-/5, it systems administrator 4-/5, hip flexor 5/5, knee flexor 5/5, ankle dorsiflexor 5/5, ankle plantarflexion 5/5 and extensor hallucis 5/5. Neurological: CN 2-12 intact. There are no obvious motor or sensory deficits. Movement and coordination equal and intact. Sensory exam to light touch intact C5-T1 and intact from L2-S1. Reflexes 2/4 in bilateral upper and lower extremities. Negative Hoffmans, babinski, and clonus signs. Psychiatric: Cooperative, appropriate mood & affect, normal judgment. - Labs CBC & Chem 7: 07/07/24 03:42 07/07/24 03:42 Labs: Abnormal Lab Results - Last 24 Hours (Table) 07/06/24 07/06/24 07/06/24 Range/Units 05:49 12:11 16:59 Glucose 153 H (70-110) mg/dL POC Glucose (mg/dL) 245 H 161 H (70-110) mg/dL Total Protein 6.1 L (6.2-8.2) g/dL 07/06/24 07/07/24 Range/Units 21:32 06:04 Glucose (70-110) mg/dL POC Glucose (mg/dL) 141 H 130 H (70-110) mg/dL Total Protein (6.2-8.2) g/dL Assessment and Plan Assessment: Cervical spondylosis C5-C7 moderate to severe bilateral neuroforaminal stenosis Left lateral cervicalgia Intermittent bilateral upper extremity radiculopathy L>R. Frequent falls Multiple medical comorbidities Plan: At this time we recommend surgical intervention of C5-C7 ACDF. Patient would like to proceed with procedure scheduled for tomorrow 07/08/24. He will be NPO at [place]. 2. Appreciate medical management 3. Pain management -continue with current regimen 4. PT/OT - weightbearing as tolerated with a walker as needed. 5. Appreciate consult. I reviewed and discussed this case with my attending Dr. Hunter, whom has reviewed this chart and films and is in agreement with assessment and plan of care as outlined above. I have personally seen and examined the patient, performed the documentation and the assessment and plan as written. Number of minutes spent on the visit: 30m.
[2024-07-07 16:36] LABS: Glucose,Whole Blood 175 mg/dL (70-110)
--- NOTE | 2024-07-07 17:44 | P.PN ---
Subjective Progress Note Date: 07/07/24 Hospital course: Patient is a very pleasant 79-year-old male with a past medical history of CAD status post CABG x 4, Ischemic cardiomyopathy, Complete heart block status post pacemaker placement, Hypertension, Hyperlipidemia, Hypothyroidism, Diabetes, and MEREDITH. Presented to the hospital on 07/04/2024 with a chief complaint of dizziness and bilateral upper extremity numbness and weakness. Patient was sent from cardiothoracic surgeons office for evaluation. Upon arrival to our facility, patient underwent evaluation in the emergency department. Vital signs upon arrival show blood pressure 188/75, heart rate 60, respiratory rate 16, temp 97.8 F, and SpO2 of 99% on room air. EKG completed showing atrial paced rhythm at 60 bpm. Chest x-ray completed negative for acute cardiopulmonary process. CT brain negative for acute intracranial process. Labs were completed and reviewed. CBC unremarkable. Coagulation profile normal findings. BMP showing hyperchloremia with chloride of 109 otherwise normal findings. Blood glucose 90. Hemoglobin A1c 6.5%. Magnesium 1.8. Liver profile unremarkable. Troponin less than 0.012. Urinalysis negative for infection. Patient was admitted under our services with consultation to cardiology and neurology. CT c ervical spine showing moderate multilevel degenerative disc disease and uncovertebral joint hypertrophy most pronounced at C5-C7 with spinal canal stenosis severe bilateral neuroforaminal stenosis at C6-C7. Echocardiogram completed showing a reduced EF of 30 to 35% with hypokinetic anteroseptum, mild biatrial dilation, and sclerotic aortic valve, and mild mitral and tricuspid regurgitation. EEG showing a normal routine EEG with no focal slowing, epileptiform discharge, or seizure activity reported. Neurologist following, stated ruled out neurologic causes of bilateral upper extremity paresthesias and weakness, in agreement that this is secondary to cervical spine stenosis and signing off of patient at this time. Orthospine surgery team following, patient is tentatively scheduled to undergo cervical fusion tomorrow morning. Physical exam: Patient seen and fully evaluated at bedside. Patient states he is feeling much better and glad they are going to do cervical fusion tomorrow because he does not want to go through this again.. Vital signs reviewed and stable. General: Nontoxic, no distress and appears stated age. Derm: Skin warm and dry, normal coloration for ethnicity. Head: Atraumatic, normocephalic and symmetric. Eyes: EOM's intact, no lid lag, and anicteric sclera Mouth: no lip lesions, mucus membranes moist Cardiovascular: regular rate and rhythm with normal S1S2, systolic murmur, positive posterior tibial pulses bilaterally, and cap refill < 2 seconds. Lungs: Respirations even, regular, and unlabored on room air. Lungs CTA bilaterally, no rhonchi, no rales, no wheezing, and no accessory muscle usage. Abdominal: soft, nontender to palpation, no guarding, no appreciable organomegaly Ext: ROM intact. No gross muscle atrophy, no edema, no contractures Neuro: Speech clear, face symmetrical and CN II-XII grossly intact with no noted focal neuro deficits Psych: Alert and oriented to person, place, time, and situation. Appropriate and pleasant affect. Assessment and Plan of Care: Cervical spine stenosis Bilateral upper extremity paresthesias accompanied by weakness and numbness Cervical neck pain, worse on the left, history of cervical spine surgery/fusion -CT cervical spine showing moderate multilevel degenerative disc disease and uncovertebral joint hypertrophy most pronounced at C5-C7 with spinal canal stenosis severe bilateral neuroforaminal stenosis at C6-C7. -Neurochecks every 4 hours -Orthospine surgery consulted, discussed case with Dr. Hunter. Tentative plan is for patient to undergo cervical fusion on 07/08/2024 -Fall precautions to be maintained. -Symptomatic care and pain management with Tylenol 650 mg every 6 hours as needed for mild to moderate pain and Hatch 5/325 mg tablets every 4 hours as needed for moderate to severe pain. -PT/OT consulted. -Neurologist following, discussed case with Dr. Avalos. Stated ruled out neurologic causes of bilateral upper extremity paresthesias and weakness, in agreement that this is secondary to cervical spine stenosis and signing off of patient at this time. CAD status post CABG x 4 Ischemic cardiomyopathy Complete heart block status post pacemaker placement Hypertension Hyperlipidemia -Continue telemetry monitoring. -Cardiology following, consulted cardiothoracic surgery for epicardial pacing of LV to optimize LV/RV synchrony -Cardiothoracic surgery was consulted to evaluate and determine if they need to perform epicardial pacing prior to patient's spinal stenosis surgery -Patient to continue cardiac medication regimen with aspirin 81 mg daily, atorvastatin 40 mg nightly, carvedilol 12.5 mg twice daily, and cardiology starting patient on Entresto 24-26 mg tablets twice daily. -Echocardiogram completed showing a reduced EF of 30 to 35% with hypokinetic anteroseptum, mild biatrial dilation, and sclerotic aortic valve, and mild mitral and tricuspid regurgitation. Type II [id number] diabetes mellitus -Hold Glyburide and Metformin and place patient on glycemic protocol with NovoLog sliding scale to maintain tight glycemic control throughout h ospitalization. Constipation Resolved after receiving 1 dose of magnesium citrate. Patient did have episode of nausea and vomiting after taking this medication but states soon after he was able to have large bowel movement and currently feels great. Obstructive sleep apnea CPAP dependent nightly -Continue CPAP nightly and while napping. Hypothyroidism -Continue levothyroxine 25 mcg daily. Data and imaging reviewed -Labs reviewed. CBC showing mild leukocytosis with WBC count of 10.30 otherwise normal findings. BMP showing elevated anion gap of 14.60 otherwise normal findings. Blood glucose 139. Magnesium 2.6. Liver profile unremarkable. -Vital signs showing blood pressure 120/70, heart rate 76, respiratory rate 18, temp 97.5 F, and SpO2 of 96% on room air. -Orthostatic vitals also reviewed and negative for orthostatic hypotension. CODE STATUS: Full code DVT prophylaxis: Lovenox Anticipated discharge date: Pending clinical course Anticipated discharge place: Home Patient was seen independently by Nurse Pracitioner. This document was prepared using [employer] dictation software. Please allow for errors in personal vehicle advisor, while rare they do occur. Dejon Rubio NP rendered care for this patient independently, reviewed the findings and plan as documented in the note above and agree with plan. I did not physically speak with or examine the patient on this date. Objective - Vital Signs Vital signs: Vital Signs Temp 97.5 F L 07/07/24 06:51 Pulse 76 07/07/24 06:51 Resp 18 07/07/24 06:51 BP 120/70 07/07/24 06:51 Pulse Ox 96 07/07/24 06:51 FiO2 Intake & Output 07/06/24 07/07/24 07/07/24 18:59 06:59 18:59 Other: Voiding Method Toilet Toilet # Voids 2 3 - Labs CBC & Chem 7: 07/07/24 03:42 07/07/24 03:42 Labs: Abnormal Lab Results - Last 24 Hours (Table) 11/23/24 11/23/24 11/23/24 Range/Units 05:49 12:11 16:59 Glucose 153 H (70-110) mg/dL POC Glucose (mg/dL) 245 H 161 H (70-110) mg/dL Total Protein 6.1 L (6.2-8.2) g/dL 07/06/24 07/07/24 Range/Units 21:32 06:04 Glucose (70-110) mg/dL POC Glucose (mg/dL) 141 H 130 H (70-110) mg/dL Total Protein (6.2-8.2) g/dL
[2024-07-07 20:36] LABS: Glucose,Whole Blood 183 mg/dL (70-110)
[2024-07-08 06:20] LABS: Glucose,Whole Blood 156 mg/dL (70-110)
[2024-07-08] MEDS ORDERED: HYDROmorphone 0.5 MG/0.5 ML SYRINGE IVP PRN (07:00)
--- NOTE | 2024-07-08 07:22 | P.PN ---
Progress Note - Text Progress Note Date: 07/08/24 Spine Surgery Clinical and Risk Review Km Amos is a 79-year-old male presenting for evaluation of bilateral upper extremity paresthesias weakness and pain. It was my pleasure to have seen and examined Km. In our visit today we have had a chance to go over subjective complaints, physi susana examination findings and treatments including the natural course history without intervention and various interventional options. The patients imaging demonstrates C5-7 previous anterior cervical discectomy and fusion uninstrumented with pseudoarthrosis severe stenosis C5-6 C6-7 due to bony overgrowth bony stenosis and thecal sac compression. Myelopathy related to this.. On physical exam, Km demonstrates bilateral upper extremity weakness paresthesias numbness and tingling. I have explained to the patient that as their condition progresses it will cause further neurological deficits and eventual paralysis. Based on the patients imaging, physical exam, and the rapid progression and disabling nature of their symptoms, at this time I recommend surgery in the form or a: Revision ACDF C5-7. I discussed the risk and benefits of this procedure at length with Km. The patient agreed to considered pursuing the procedure abovementioned. Prior to surgery, she should follow up with her PCP (Cardio, ID, IM etc) for clearance. Questions were invited and answered, and the patient wishes to proceed as outlined below. Currently, I am recommendin. C5-7 revision anterior cervical discectomy and fusion 2. Follow up with PCP for surgical clearance 3. Review of surgical risks and benefits as well as an educational packet on the proposed surgical procedure. Risks: All surgical procedures come with inherent risks, including those related to positioning, anesthesia, intraoperative findings, and postoperative complications. It is important to understand that surgery does not come with any guarantee of a successful outcome as complications and adverse events are always possible. The patient was given a handout in office today discussing the surgical procedure and risks associated with the intervention, both of which were discussed with the patient. These risks include but are not limited to the following: Experiencing same, different or even worse symptoms in back, neck, arms, or legs compared to before surgery. Requiring further surgery or other forms of treatment presently or at some time in the future at same or other levels of the intended spine surgery. On an extreme but fortunately relatively rare basis severe complication such as blindness, stroke, heart attack, temporary and/or permanent nerve injury, paralysis, coma, or may occur, sometimes without known explanation. Surgical complications may include but are not limited to risk of infection, fluid accumulation in the surgical dissection site, including a se zulema or hematoma, that requires additional surgery, wound drainage, bleeding, new numbness or weakness, vision changes/loss, spinal fluid leakage, non-healing and/or infected incision, headaches, difficulty or inability to swallow, hoarseness, hemopneumothorax, pneumothorax, impotence, retrograde ejaculation, vaginal dryness; injury to nerves, spinal cord, blood vessels, lymphatics or other vital organs (i.e., bowel injury, injury to the great vessels); heterotopic bone formation; complications related to the hardware such as screws, rods, cages including misplaced hardware, device failure, in strumentation at the wrong spine level, hardware fracture/breakage, or hardware loosening; vertebral failure of the spinal column above or below the newly placed hardware; retained surgical instrumentations or devices and the need for further surgery. Medical risks of the planned spine surgery include but are not limited to generalized Infections to the whole body or local areas outside of the surgical site (sepsis), heart attack, bleeding, anaphylaxis, meningitis, seizure, epilepsy, hearing loss, burn larsen, laceration of the head or other areas of the body, bruising, hypersensitivity of the skin, bladder over distension; allergic reaction; shoulder injury related to positioning; fat, blood and air clots to other areas of the body like heart, lungs, brain; failure of internal organs such as lungs, kidneys, liver and excessive bleeding. If blood transfusions are necessary, note that transfusions may cause intolerance reactions such as anaphylaxis or other complex reactions. Despite best efforts, the results of spine surgery might not heal in terms of bone, soft tissues such as skin, fascia, ligaments, and joints. Additionally, in order to achieve best possible results, spine surgery may be carried out beyond the initially planned levels and involve decompression, fusion including insertion of hardware at levels other than the original intended area of surgical interest change some portions of the procedure in order to ensure the best possible outcomes. With spine surgery and spinal fusion, there are different off label uses of instrumentation (devices, implants and hardware) as well as biological substances (bone morphogenic proteins, demineralized bone matrix) as well as using extra bone from allograft sources (i.e. cadaver bone) or autograft (iliac crest bone, ribs, or the spine itself). The patient has been given information about these practices and their inherent risks and benefits. The patient has had a chance to review all the listed information, has been given print outs detailing this information, and has had all his/her questions answered to their satisfaction. It was my pleasure to have seen and examined Km Amos. In our visit today we have had a chance to go over my understanding of our patient's current condition, the natural course history without intervention and various interventional options. Questions were invited and answered, and the patient wishes to proceed as outlined above. I have seen and examined the patient for 25 minutes and we have spent more than 50% of the time in repeat and detailed counseling about the patient's condition, its natural course history with out and as much as can be predicted with surgery and re-review of various surgical treatment options. In conclusion, Km Amos and [his/her spouse/partner] requested we proceed with the above suggested surgery and are willing to accept risks and limitations of the suggested surgery as nature of the disease process and our best attempts at treatment for the condition. Thank you again for allowing us to be part of your patient's care. Please don't hesitate to contact me if you have any further questions. Signed and authenticated by: Antwan Figueroa [facility] [place] [address]
[2024-07-08] MEDS ORDERED: TRANEXAMIC 1,000 MG/100ML-NACL 1,000 MG in SALINE 1 100ML.BAG IVPB PRN (08:00)
[2024-07-08 08:12] VITALS: BP 90/57; PULSE 70; RESP 17; TEMP 97.5
[2024-07-08 09:10] LABS: HCT 46.1 % (39.6-50.0); HGB 15.3 g/dL (13.0-17.0); MCH 29.7 pg (27.0-32.0); MCHC 33.2 g/dL (32.0-37.0); MCV 89.5 FL (80.0-97.0); Mean Platelet Volume 11.9 FL (9.5-12.2); NRBC Per 100 WBC 0 X 10*3/uL (0.00-0.01); Platelet Count 205 X 10*3/uL (140-440); RBC 5.15 X 10*6/uL (4.40-5.60); RDW 13.1 % (11.5-14.5); WBC 7.65 X 10*3/uL (4.50-10.00)
[2024-07-08 09:13] LABS: ALT 52 U/L (10-49); AST 28 U/L (14-35); Albumin 4.2 g/dL (3.8-4.9); Alkaline Phosphatase 69 U/L (41-126); BUN/Creat Ratio 27.73 Ratio (12.00-20.00); Blood Urea Nitrogen 30.5 mg/dL (9.0-27.0); Calcium 9.1 mg/dL (8.7-10.3); Carbon Dioxide 23.4 mmol/L (21.6-31.8); Chloride 104 mmol/L (96-109); Globulin 2.1 g/dL (1.6-3.3); Glucose 149 mg/dL (70-110); Magnesium 2.8 mg/dL (1.5-2.4); Potassium 4.2 mmol/L (3.5-5.5); Sodium 141 mmol/L (135-145); Total Bilirubin 0.4 mg/dL (0.3-1.2); Total Protein 6.3 g/dL (6.2-8.2)
--- NOTE | 2024-07-08 09:25 | P.PN ---
Subjective Progress Note Date: 07/08/24 HISTORY OF PRESENT ILLNESS: This is a 79-year-old male with a past medical history significant for coronary artery disease with previous CABG, ischemic cardiomyopathy, complete heart block status post biventricular pacemaker, hypertension, hyperlipidemia, and diabetes. Patient follows in the office with Dr. Brownlee. We have been asked to see the patient in consultation for dizziness. Patient examined at the bedside. Patient was at Dr. Alex Lal's office yesterday for possible LV lead implantation via thorascopic approach. While at this appointment, he told Dr. Lal he had had an episode the day before while driving. He states that he was driving and then he stopped and went to open up the door and suddenly his whole body went numb from the waist up. He denied any motor weakness. He states he was able to walk into his house. He states he had a similar episode last week but it was not as severe. He denied having any chest pain or pressure. Denied any shortness of breath. He denied any issues with his speech or vision. The patient was directed to come to the emergency room. The patient states he has not had any further episodes like this since being in the hospital. Patient's vital signs are stable. Patient's blood pressures have been elevated with a systolic greater than 150 since admission. DIAGNOSTICS: - EKG reveals AV paced rhythm - Chest xray negative for acute process - Laboratory data: WBC 7.9. Hemoglobin 13.7. Platelet count 194. Sodium 141. Potassium 4.5. BUN 20. Creatinine 1.13. Troponin negative x 1. - Current home cardiac medications include losartan 25 mg daily, carvedilol 12.5 mg twice a day, aspirin 81 mg daily, atorvastatin 40 mg at night - Most recent echocardiogram obtained in November 2022 revealing ejection fraction 50%, grade 1 diastolic dysfunction, no LVH - Patient underwent Lexiscan stress test in January 2023 revealing EF of 47% and no evidence of reversible ischemia - Patient underwent CABG in July 2008 with BACA to LAD, radial to PDA, SVG to diagonal, SVG to OM Progress note July 06 Seen and examined at bedside this a.m. Blood pressure controlled, orthostatic vital signs are nonrevealing and appears euvolemic. July 07 Seen and examined at bedside this a.m. Blood pressure controlled, tolerating GDMT 07/08/2024 Patient is scheduled today for cervical surgery. He denies having any chest pain no shortness of breath. Upon review of patient's information, he had a significant drop in his EF from 50% to 30 to 35% in 1 year of unclear etiology. Patient's medications reviewed and he is on appropriate heart failure medications. Dr. Hunter contacted and surgery for today canceled. Patient will need workup as an outpatient with Dr. Brownlee prior to clearance for surgery. Initially, patient quite upset about this but eventually in agreement. Blood pressure 90/57, heart rate 70, pulse ox 96% on room air. Repeat blood work reveals hemoglobin 15.3, BUN 30 creatinine 1.1, potassium 4.2. Magnesium 2.8. PHYSICAL EXAM: VITAL SIGNS: Reviewed. GENERAL: Well-developed in no acute distress. HEENT: Head is normocephalic. Pupils are equal, round. Sclerae anicteric. Mucous membranes of the mouth are moist. Neck supple. No JVD or thyromegaly LUNGS: Respirations even and unlabored. Lungs essentially clear to auscultation bilaterally. HEART: Regular rate and rhythm. S1 and S2 heard. ABDOMEN: Soft. Nondistended. Nontender. EXTREMITIES: Normal range of motion. No clubbing or cyanosis. Peripheral pulses intact. No lower extremity edema NEUROLOGIC: Awake and alert. Oriented x 3. ASSESSMENT: Episode of numbness from the waist up, without loss of motor skills, etiology unclear Coronary artery disease with previous four-vessel CABG, 2007 Ischemic cardiomyopathy History of complete heart block status post biventricular pacemaker, [facility] Hypertension, uncontrolled Hyperlipidemia Diabetes Hypothyroidism History of TIA, per patient Recent cardiac test Echocardiogram showed an EF of 30 to 35%, apical hypokinesia, septal hypokinesia consistent with prior open heart surgery. echocardiogram obtained in November 2022 revealing ejection fraction 50%, grade 1 diastolic dysfunction, no LVH PLAN: He does have deterioration of his LVEF since he is not getting biventricularly paced as his LV pacemaker lead has been turned off. He is 99% RV paced. No reported VT or tacky or bradycardia arrhythmias that was explain his syncope or passing out. Orthostatic vital signs were nonrevealing Continue current cardiac medications: Atorvastatin, Coreg 12.5 mg twice daily, Farxiga 10 mg daily, Entresto 24-26 mg twice daily He needs outpatient evaluation for epicardial pacing of LV to optimize LV / rv synchrony Patient is cleared for discharge and to follow-up with Dr. Brownlee in 1 week. At this time patient is cleared from cardiac standpoint. Patient can be discharged with recommended outpatient follow-up with primary tobacco farmworker. Await orthopedics recommendation on when planning for spinal decompression surgery. Objective - Vital Signs Vital signs: Vital Signs Temp 97.5 F L 07/08/24 07:38 Pulse 70 07/08/24 07:38 Resp 17 07/08/24 07:38 BP 90/57 07/08/24 07:38 Pulse Ox 96 07/08/24 07:38 FiO2 Intake & Output 07/07/24 07/08/24 07/08/24 18:59 06:59 18:59 Other: Voiding Method Toilet # Voids 2 3 - Labs CBC & Chem 7: 07/08/24 02:56 07/08/24 02:56 Labs: Abnormal Lab Results - Last 24 Hours (Table) 07/07/24 07/07/24 07/07/24 Range/Units 03:42 03:42 12:03 WBC 10.30 H (4.50-10.00) X 10*3/uL Anion Gap 14.60 H (4.00-12.00) mmol/L BUN/Creatinine Ratio 20.45 H (12.00-20.00) Ratio Glucose 139 H (70-110) mg/dL POC Glucose (mg/dL) 168 H (70-110) mg/dL Magnesium 2.6 H (1.5-2.4) mg/dL 07/07/24 07/07/24 07/08/24 Range/Units 16:35 20:35 06:18 WBC (4.50-10.00) X 10*3/uL Anion Gap (4.00-12.00) mmol/L BUN/Creatinine Ratio (12.00-20.00) Ratio Glucose (70-110) mg/dL POC Glucose (mg/dL) 175 H 183 H 156 H (70-110) mg/dL Magnesium (1.5-2.4) mg/dL
--- NOTE | 2024-07-08 09:29 | P.DS ---
Providers Date of admission: 07/06/24 09:06 Expected date of discharge: 07/08/24 Attending physician: Jesse Cleveland Consults: 07/04/24 17:44 Consult Physician Routine Consulting Provider: Chris Avalos Consult Reason/Comments: Dizziness, intermittent bilateral upper extremity numbness and weakness Do you want consulting provider notified?: Yes Consult Physician Routine Consulting Provider: Jose Luis Brownlee Consult Reason/Comments: Pacemaker, dizziness Do you want consulting provider notified?: Yes 07/05/24 12:06 Consult Physician Routine Consulting Provider: Antwan Hunter Consult Reason/Comments: neck pain with unsteady balance and numbness uppers Do you want consulting provider notified?: Yes 07/06/24 10:44 Consult Physician Routine Consulting Provider: Alex Lal Consult Reason/Comments: Epicardial pacing Do you want consulting provider notified?: Yes Primary care physician: Stated None Hospital Course: Discharge Diagnosis: Cervical spine stenosis. Secondary to worsening drop in ejection fraction from previous 50% down to 30 to 35% over the last year cardiology recommending to hold off of surgery until further outpatient workup and optimization of heart failure. This was discussed with patient and initially patient was upset about canceling surgery but after thorough explanation patient in agreement. Patient to follow-up outpatient with Dr. Hunter for further evaluation and scheduling of surgery once cleared from primary greenhouse specialist.. Bilateral upper extremity paresthesias accompanied by weakness and numbness. Secondary to above Cervical neck pain, worse on the left, history of cervical spine surgery/fusion. 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 Resolved after receiving 1 dose of magnesium citrate. Obstructive sleep apnea CPAP dependent nightly Continue CPAP nightly and while napping. Hypothyroidism Continue levothyroxine 25 mcg daily. 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 Presented to the hospital on 07/04/2024 with a chief complaint of dizziness and bilateral upper extremity numbness and weakness. Patient was sent from cardiothoracic surgeons office for evaluation. Upon arrival to our facility, patient underwent evaluation in the emergency department. Vital signs upon arrival show blood pressure 188/75, heart rate 60, respiratory rate 16, temp 97.8 F, and SpO2 of 99% on room air. EKG completed showing atrial paced rhythm at 60 bpm. Chest x-ray completed negative for acute cardiopulmonary process. CT brain negative for acute intracranial process. Labs were completed and reviewed. CBC unremarkable. Coagulation profile normal findings. BMP showing hyperchloremia with chloride of 109 otherwise normal findings. Blood glucose 90. Hemoglobin A1c 6.5%. Magnesium 1.8. Liver profile unremarkable. Troponin less than 0.012. Urinalysis negative for infection. Patient was admit ghazal under our services with consultation to cardiology and neurology. CT cervical spine showing moderate multilevel degenerative disc disease and uncovertebral joint hypertrophy most pronounced at C5-C7 with spinal canal stenosis severe bilateral neuroforaminal stenosis at C6-C7. Echocardiogram completed showing a reduced EF of 30 to 35% with hypokinetic anteroseptum, mild biatrial dilation, and sclerotic aortic valve, and mild mitral and tricuspid regurgitation. Cardiology evaluated and consulted cardiothoracic surgery for epicardial pacing of LV to optimize LV/RV synchronyEEG showing a normal routine EEG with no focal slowing, epileptiform discharge, or seizure activity reported. Neurologist following, stated ruled out neurologic causes of bilateral upper extremity paresthesias and weakness, in agreement that this is secondary to cervical spine stenosis and signing off of patient at this time. Review of thoracic surgery team evaluated and stated epicardial pacing can be done on outp atient basis. Orthospine surgery team following, patient was scheduled to undergo cervical fusion tomorrow morning. Secondary to worsening drop in ejection fraction from previous 50% down to 30 to 35% over the last year cardiology recommending to hold off of surgery until further outpatient workup and optimization of heart failure. This was discussed with patient and initially patient was upset about canceling surgery but after thorough explanation patient in agreement. Patient to follow-up outpatient with Dr. Hunter for further evaluation and scheduling of surgery once cleared from primary greenhouse specialist.. Patient to follow-up with greenhouse specialist, Dr. Perez for further optimization of heart failure and ischemic workup. Patient medically optimized for discharge at this time as he is free from any chest pain, shortness of breath, or any other complaints at this time. Patient verbalized understanding of need to follow-up with PCP, greenhouse specialist, cardiothoracic surgeon, and lastly orthospine surgeon. Physical exam: Vital signs reviewed and stable. General: Nontoxic, no distress and appears stated age. Derm: Skin warm and dry, normal coloration for ethnicity. Head: Atraumatic, normocephalic and symmetric. Eyes: EOM's intact, no lid lag, and anicteric sclera Mouth: no lip lesions, mucus membranes moist Cardiovascular: regular rate and rhythm with normal S1S2, systolic murmur, positive posterior tibial pulses bilaterally, and cap refill < 2 seconds. Lungs: Respirations even, regular, and unlabored on room air. Lungs CTA bi laterally, no rhonchi, no rales, no wheezing, and no accessory muscle usage. Abdominal: soft, nontender to palpation, no guarding, no appreciable organomegaly Ext: ROM intact. No gross muscle atrophy, no edema, no contractures Neuro: Speech clear, face symmetrical and CN II-XII grossly intact with no noted focal neuro deficits Psych: Alert and oriented to person, place, time, and situation. Appropriate and pleasant affect. A total of 45 minutes of time were spent preparing this complex discharge summary. Pt was discharged on 07/08/2024 at 9:28 AM. Patient was seen independently by Nurse Practitioner. This document was prepared using View[employer] dictation software. Please allow for errors in mill hand while rare they do occur. Dejon Rubio NP rendered care for this patient independently, reviewed the findings and plan as documented in the note above. I did not physically speak with or examine the patient on this date. Patient Condition at Discharge: Stable Plan - Discharge Summary Discharge Rx Participant: No New Discharge Prescriptions: New Sacubitril/Valsartan [Entresto 24 mg-26 mg Tablet] 1 each PO BID 30 Days #60 tab Dapagliflozin Propanediol [Farxiga] 10 mg PO DAILY 30 Days #30 tab Continue Glimepiride [Amaryl] 1 mg PO DAILY Atorvastatin [Lipitor] 40 mg PO HS metFORMIN HCL [Glucophage] 1,000 mg PO BID carvediloL [Coreg*] 12.5 mg PO BID Aspirin 81 mg PO DAILY Glimepiride [Amaryl] 2 mg PO HS Levothyroxine Sodium [Synthroid] 25 mcg PO DAILY Discontinued Losartan [Cozaar] 25 mg PO DAILY@1200 Discharge Medication List Glimepiride [Amaryl] 1 mg PO DAILY 10/09/15 [History] Atorvastatin [Lipitor] 40 mg PO HS 06/22/17 [History] carvediloL [Coreg*] 12.5 mg PO BID 06/22/17 [History] metFORMIN HCL [Glucophage] 1,000 mg PO BID 06/22/17 [History] Aspirin 81 mg PO DAILY 07/31/17 [History] Glimepiride [Amaryl] 2 mg PO HS 07/04/24 [History] Levothyroxine Sodium [Synthroid] 25 mcg PO DAILY 07/04/24 [History] Dapagliflozin Propanediol [Farxiga] 10 mg PO DAILY 30 Days #30 tab 07/08/24 [Rx] Sacubitril/Valsartan [Entresto 24 mg-26 mg Tablet] 1 each PO BID 30 Days #60 tab 07/08/24 [Rx] Follow up Appointment(s)/Referral(s): Jose Luis Brownlee MD [STAFF PHYSICIAN] - 1 Week Willi Johnson DO [STAFF PHYSICIAN] - 1-2 days Alex Lal MD [STAFF PHYSICIAN] - 07/25/24 3:45 pm Antwan Hunter DO [Doctor of Osteopathic Medicine] - 1 Week Patient Instructions/Handouts: Heart Failure (DC), Cervical Spinal Stenosis (DC) Activity/Diet/Wound Care/Special Instructions: Activity: As tolerated. Take breaks as needed. Diet: Heart healthy and carb consistent diet. Avoid salts, or foods with hidden salts such as canned or boxed foods and frozen dinners. Extra salt makes your heart work harder and traps the fluid in your body for longer. Special Instructions: Take all of your medications as directed and remember to keep all of your doctor's appointments and follow-up as needed. Thank you for allowing us to participate in your care, it was truly a pleasure having you for our patient!!! . Discharge Disposition: HOME SELF-CARE
--- NOTE | 2024-07-10 12:07 | CDI ---
Documentation Clarification Form Date: 07/10/2024 11:49:46 AM From: Maria Guadalupe Arroyo Phone: Admit Date: 07/06/2024 09:06:00 AM Patient Name: Km Amos Visit Number: [id number] Discharge Date: 07/08/2024 11:07:00 AM ATTENTION: The Clinical Documentation Specialists (CDI) and [facility] Coding Staff appreciate your assistance in clarifying documentation. Please respond to the clarification below the line at the bottom and electronically sign. The CDI & [facility] Coding staff will review the response and follow-up if needed. Please note: Queries are made part of the Legal Health Record. If you have any questions, please contact the author of this message via ITS. Doctor/Provider: Jesse Cleveland Your patient has the documented diagnosis of unspecified CHF in DS on 07/08 Additional information regarding the [type,] of CHF is requested. History/Risk Factors: Pt 79-year-old man with a PMH ofischemic cardiomyopathywith IVpacemaker placement, EF 35%,diabetes mellitus, hyperlipidemia,hypertension,myocardial infarction,sleep apnea,history of prostate cancerwithradiation Clinical Indicators: on 07/08 pn PT presented forevaluationof bilateral upper extremityparesthesiaweaknessandpain , The patients imagingdemonstrates C5-7 previous anterior cervicaldiscectomyandfusion un-instrumented withpseudo arthrosisseverestenosisC5-6 C6-7 due to bony overgrowth bonystenosisand thecal saccompression. Myelopathyrelated to this. On 07/08 ds - Review of thoracic surgery team evaluated and stated epicardial pacing can be done on outpatient basis. Orth spine surgery team following, patient was scheduled to undergo cervicalfusiontomorrow morning. Secondary to worsening drop in ejection fraction from previous 50% down to 30 to 35% over the last year cardiology recommending to hold off of surgery until further outpatient workup and optimization ofheart failure. VS/Pulse OX: on 07/04 -Temperature 97. 8 F 98. 2 F Pulse Rate 60 64 60 Respiratory 16 16 14 [id number]/75 163/75 163/82 O2 Sat by Pulse 99 98 97 Oximetry Echo-transthoracic 07/05 -LVEF 30 to 35% A kineticapex Hypokinetic anteroseptum PPM wire inRAand RV Mild bilateraldilatation Sclerotic aortic valve, mild TR, mild MR Echocardiogram Results: EKGcompleted showing atrial paced rhythm at 60 bpm. : Treatment: continue home meds In your professional opinion, can you please clarify the [acuity and type] of CHF if known? [ ] Acute Systolic Heart Failure (reduced EF) [ x ] Chronic Systolic Heart Failure (reduced EF) [ ] Acute on Chronic Systolic Heart Failure (reduced EF) [ ] Other, please specify [ ] Unable to determine (Template Last Revised: September 2020) MTDD
== END 2024-07-08 11:07 | disposition home or self-care (01) | DRG 552 ==
LOC: EC 15:08 → SUPCPDRO 15:08 → 6NMEDSUR 17:48 → OBSVTOIN 07-06 09:06 → 4SSUR 07-06 15:23
PROVIDERS: ADMIT Student in an Organized Health Care Education/Training Program; ATTEND Student in an Organized Health Care Education/Training Program
DX: M48.02 Spinal stenosis, cervical region (principal); F03.918 Unspecified dementia, unspecified severity, with other behavioral disturbance; M50.022 Cervical disc disorder at C5-C6 level with myelopathy; I50.22 Chronic systolic (congestive) heart failure; I25.10 Atherosclerotic heart disease of native coronary artery without angina pectoris; I25.5 Ischemic cardiomyopathy; I11.0 Hypertensive heart disease with heart failure; E78.5 Hyperlipidemia, unspecified; E11.9 Type 2 diabetes mellitus without complications; K59.00 Constipation, unspecified; G47.33 Obstructive sleep apnea (adult) (pediatric); E03.9 Hypothyroidism, unspecified; E87.8 Other disorders of electrolyte and fluid balance, not elsewhere classified; M47.812 Spondylosis without myelopathy or radiculopathy, cervical region; I08.3 Combined rheumatic disorders of mitral, aortic and tricuspid valves; G89.29 Other chronic pain; M50.10 Cervical disc disorder with radiculopathy, unspecified cervical region; M50.122 Cervical disc disorder at C5-C6 level with radiculopathy; R29.6 Repeated falls; Z79.82 Long term (current) use of aspirin; Z95.1 Presence of aortocoronary bypass graft; Z95.0 Presence of cardiac pacemaker; Z79.84 Long term (current) use of oral hypoglycemic drugs; Z86.73 Personal history of transient ischemic attack (TIA), and cerebral infarction without residual deficits; Z87.891 Personal history of nicotine dependence; Z98.1 Arthrodesis status; Z79.890 Hormone replacement therapy
CPT/HCPCS: 36415; 70450; 71046; 72125; 80053; 81001; 82607; 82746; 83036; 83735; 84443; 84484; 85025; 85027; 85610; 85730; 93005; 93306; 94760; 95816; 99285

== ENCOUNTER 2024-08-02 14:32 | Emergency (ER) | payer MEDICARE ==
[2024-08-02 14:44] VITALS: TEMP 98.2
[2024-08-02 15:08] LABS: Basophils % (A) 1 %; Eosinophils # (A) 0.4 k/uL (0-0.7); Eosinophils % (A) 6 %; HCT 42.5 % (39.0-53.0); Lymphocytes # (A) 1.3 k/uL (1.0-4.8); Lymphocytes % (A) 19 %; MCH 30.5 pg (25.0-35.0); MCV 92.5 fL (80.0-100.0); Mean Platelet Volume 8.5; Monocytes # (A) 0.5 k/uL (0-1.0); Monocytes % (A) 6 %; Neutrophils # (A) 4.9 k/uL (1.3-7.7); Neutrophils % (A) 68 %; Platelet Count 204 k/uL (150-450); RBC 4.59 m/uL (4.30-5.90); RDW 12.9 % (11.5-15.5); WBC 7.2 k/uL (3.8-10.6)
--- NOTE | 2024-08-02 15:08 | ED ---
Dizziness HPI - General Source: patient, family Mode of arrival: wheelchair Limitations: no limitations <Brianna Rushing - Last Filed: 08/02/24 15:07> - General Source: patient, RN notes reviewed, old records reviewed <Misbah Wagner - Last Filed: 08/02/24 22:58> - General Chief Complaint: Dizziness Stated Complaint: L arm numbness/neck pain/dizzy Time Seen by Provider: 08/02/24 15:07 - History of Present Illness Initial Comments: Quick note: 79-year-old male presented to ER for evaluation of a burning left- sided chest discomfort. He does report sensation goes to his left arm. He is also reporting dizziness, lightheadedness and states "his eyes cannot keep up". This is been ongoing since 3 AM. Known cardiac history. (Brianna Rushing) Patient is a 79-year-old male who presents emergency department complaining of persistent lightheadedness, arm weakness that has been ongoing for months. Patient has a past medical history significant for CAD with CABG, ischemic cardiomyopathy with AICD, complete heart block, hypertension, hyperlipidemia, diabetes. Follows up with Dr. Brownlee. Was worse today and had an associated episode of chest pain that has also been intermittent for months. States the chest pain was this morning at 3 AM and was very brief and radiated down his left arm. Has since resolved but is still having lightheadedness sensation. States he has a history of chronic issues with lightheadedness, history of essential tremor. Patient was evaluated for somewhat similar complaints a few weeks ago and elected to be discharged home with follow-up with Dr. Casillas's and at the end of August. Patient and patient's son are concerned and want the patient reevaluated to see if anything new is going on. They are uncertain if they can wait until the end of the month. Patient originally seen as a quick note. Presents for further evaluation at this time.Patient currently has no symptoms other than lightheadedness he thinks if he stands up. States it is not room spinning sensation but feels off balance. He is supposed to have a cervical spine procedure done by Dr. Hunter however nothing is scheduled as of yet.Patient states he is having worsening debility at home, cannot drive, cannot do his normal day-to-day activities. This is also a driving factor for his presentation today. (Misbah Wagner) - Related Data Home Medications Medication Instructions Recorded Confirmed Glimepiride [Amaryl] 1 mg PO DAILY 10/09/15 07/04/24 Atorvastatin [Lipitor] 40 mg PO HS 06/22/17 07/04/24 carvediloL [Coreg*] 12.5 mg PO BID 06/22/17 07/04/24 metFORMIN HCL [Glucophage] 1,000 mg PO BID 06/22/17 07/04/24 Aspirin 81 mg PO DAILY 07/31/17 07/04/24 Glimepiride [Amaryl] 2 mg PO HS 07/04/24 07/04/24 Levothyroxine Sodium [Synthroid] 25 mcg PO DAILY 07/04/24 07/04/24 Previous Rx's Medication Instructions Recorded Dapagliflozin Propanediol [Farxiga] 10 mg PO DAILY 30 Days #30 tab 07/08/24 Sacubitril/Valsartan [Entresto 24 1 each PO BID 30 Days #60 tab 07/08/24 mg-26 mg Tablet] Allergies Allergy/AdvReac Type Severity Reaction Status Date / Time No Known Allergies Allergy Verified 08/02/24 14:38 Review of Systems ROS Other: All systems not noted in ROS Statement are negative. <Brianna Rushing - Last Filed: 08/02/24 15:07> ROS Other: All systems not noted in ROS Statement are negative. <Misbah Wagner - Last Filed: 08/02/24 22:58> ROS Statement: Those systems with pertinent positive or pertinent negative responses have been documented in the HPI. Review of Systems: CONST: Denies fever EYES: Denies blurry vision ENT: Denies nasal congestion C/V: Denies Chest pain RESP: Denies shortness of breath GI: Denies abdominal pain : Denies dysuria SKIN: Denies rash. MSK: Denies joint pain. 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 History of Any Multi-Drug Resistant Organisms: None Reported Past Surgical History: Back Surgery, Cholecystectomy, Coronary Bypass/CABG, Heart Catheterization, Orthopedic Surgery, Pacemaker Additional Past Surgical History / Comment(s): CABG X4 in 2009, LOWER BACK, NECK SX X2, FOOT SX X 3, CATARACTS. Past Anesthesia/Blood Transfusion Reactions: No Reported Reaction Type of Cardiac Device: Permanent Pacemaker Device Placement Date:: 2012 Past Psychological History: No Psychological Hx Reported Smoking Status: Former smoker Past Alcohol Use History: Rare Past Drug Use History: Marijuana - Past Family History Brother(s) Family Medical History: Cancer Additional Family Medical History / Comment(s): 2 BROTHERS WITH PROSTATE CA Mother Family Medical History: No Reported History <Brianna Rushing - Last Filed: 08/02/24 15:07> General Exam Limitations: no limitations <Brianna Rushing - Last Filed: 08/02/24 15:07> <Misbah Wagner - Last Filed: 08/02/24 22:58> - General Exam Comments Initial Comments: Visual Physical Exam Vital signs reviewed General: Well-appearing, nontoxic, no acute distress. Head: Normocephalic, atraumatic Eyes: PERRLA, EOMI ENT: Airway patent Chest: Nonlabored breathing Skin: No visual rash, normal skin tone Neuro: Alert and oriented 3 Musculoskeletal: No gross abnormalities (Brianna Rushing) General: Appears in no acute distress. HEAD: Normal with no signs of head trauma. EYES: PERRLA, EOMI, conjunctiva normal, no discharge. Pupils are 3 mm and equal bilaterally. ENT: Hearing grossly intact, normal oropharynx. RESPIRATORY: Clear breath sounds bilaterally. No wheezes, rales, or rhonchi. C/V: Regular rate and rhythm. S1 and S2 auscultated, no edema, peripheral pulses 2+ and intact throughout ABD: Abd is soft, nontender, nondistended EXT: Normal range of motion, no obvious deformity SKIN: No rashes or lesions observed on exposed skin. NEURO: Alert and oriented x 4. Cranial nerves II-XII intact. No focal sensory or strength deficits. Patient does have baseline essential tremor. Patient has normal finger-nose testing and [id number]-ef-[id number] testing. NIH appears to be 0. (Misbah Wagner) Course Vital Signs 08/02/24 08/02/24 14:38 19:04 Temperature 98.2 F 98.2 F Pulse Rate 63 60 Respiratory 18 16 Rate Blood Pressure 136/71 102/74 O2 Sat by Pulse 99 99 Oximetry Medical Decision Making <Brianna Rushing - Last Filed: 08/02/24 15:07> - Lab Data Result diagrams: 08/02/24 15:00 08/02/24 15:00 - EKG Data -: EKG Interpreted by Me <Misbah Wagner - Last Filed: 08/02/24 22:58> - Medical Decision Making I performed the quick note portion of this chart. Electronically signed by Brianna Rushing PA-C (Brianna Rushing) Was pt. sent in by a medical professional or institution ([facility], ENGAGEMENT QUALITY CONSULTANT, urgent care, hospital, or group home...) When possible be specific @ -No Did you speak to anyone other than the patient for history (EMS, parent, family, police, friend...)? What history was obtained from this source @ -No Did you review nursing and triage notes (agree or disagree)? Why? @ -I reviewed and agree with nursing and triage notes Were old charts reviewed (outside hosp., previous admission, EMS record, old EKG, old radiological studies, urgent care reports/EKG's, group home records)? Report findings @ -No old charts were reviewed Differential Diagnosis (chest pain, altered mental status, abdominal pain women, abdominal pain men, vaginal bleeding, weakness, fever, dyspnea, syncope, heada zeke, dizziness, GI bleed, back pain, seizure, CVA, palpatations, mental health, musculoskeletal)? @ -Differential Chest Pain: Stable Angina, Unstable Angina, STEMI, NSTEMI Aortic Dissection, Pneumothorax, Musculoskeletal, Esophageal Spasm GERD, Cholecystitis, Pancreatitis, Zoster, this is not meant to be an all-inclusive list. Differential Dizziness: Benign paroxysmal positional Vertigo, Meniere's disease, otitis media, acoustic neuroma, vertebrobasilar insufficiency, cerebellar stroke, encephalitis, hypovolemic, arrhythmia, coronary artery syndrome, anemia, this is not meant to be an all-inclusive list EKG interpreted by me (3pts min.). @ -As above X-rays interpreted by me (1pt min.). @ -Chest x-ray reveals no obvious acute cardiopulmonary process. CT interpreted by me (1pt min.). @ -CT imaging reveals degenerative changes with no obvious acute process. This includes CT angiogram of the head and neck. U/S interpreted by me (1pt. min.). @ -None done What testing was considered but not performed or refused? (CT, X-rays, U/S, labs)? Why? @ -None What meds were considered but not given or refused? Why? @ -None Did you discuss the management of the patient with other professionals (professionals i.e. , PA, ENGAGEMENT QUALITY CONSULTANT, lab, RT, psych nurse, social problems specialist, professor of nursing, teacher, financial officer, case briefer)? Give summary @ -No Was smoking cessation discussed for >3mins.? @ -No Was critical care preformed (if so, how long)? @ -No Were there social determinants of health that impacted care today? How? (Homelessness, low income, unemployed, alcoholism, drug addiction, transporta tion, low edu. Level, literacy, decrease access to med. care, fpc, rehab)? @ -No Was there de-escalation of care discussed even if they declined (Discuss DNR or withdrawal of care, Hospice)? DNR status @ -No What co-morbidities impacted this encounter? (DM, HTN, Smoking, COPD, CAD, Cancer, CVA, ARF, Chemo, Hep., AIDS, mental health diagnosis, sleep apnea, morbid obesity)? 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 Hospital course, mention meds given and route, prescriptions, significant lab abnormalities, going to OR and other pertinent info. @ -Based on the patient's presentation and physical exam, presents emergency de partment for acute on chronic symptoms of chest pain, lightheadedness, weakness. An episode of chest pain at 3 AM this morning. And following lightheadedness. Patient has lightheadedness on a daily basis but states that seems worse today. Presents for further evaluation at this time. We will obtain cardiac workup as directed by the quick note and orders in triage but I also recommended we obtain CT brain and CT angiogram to rule out intracranial causes for his symptoms. Could be secondary to his cervical spine. However with everything being worse we agreed to obtain CT imaging as well. Patient will be administered IV fluids. EKG shows paced rhythm with no obvious acute ischemic changes. Patient's laboratory studies returned remarkable for an undetectable troponin. Remainder the laboratory studies unremarkable. Chest x-ray reveals no obvious acute cardiopulmonary process. CT imaging unremarkable. On reevaluation, patient has been ambulatory and currently has no symptoms. I discussed with the patient and we agreed to obtain a second troponin. I do not believe he requires admission at this time a second troponin is within acceptable limits and he would like to go home. I believe this is reasonable. He already has follow-up with Dr. Hunter. Discussed symptoms likely related to his cervical spine issues. Repeat troponin undetectable. Patient remains asymptomatic and would like to go home. I believe this is reasonable. Strict return precautions discussed. I instructed the patient to follow up with their PCP in the next 1-3 days. I explained that the patient should return to the emergency department if they experience any worsening symptoms. Strict return precautions were discussed with the patient. The patient expressed understanding of these instructions. I answered all questions that the patient had. The patient was discharged home in good condition with their prescriptions and follow up information. Undiagnosed new problem with uncertain prognosis? @ -No Drug Therapy requiring intensive monitoring for toxicity (Heparin, Nitro, Insulin, Cardizem)? @ -No Were any procedures done? @ -No Diagnosis/symptom? @ -Dizziness, cervical radiculopathy, chest pain Acute, or Chronic, or Acute on Chronic? @ -Acute on chronic Uncomplicated (without systemic symptoms) or Complicated (systemic symptoms)? @ -Uncomplicated Side effects of treatment? @ -None Exacerbation, Progression, or Severe Exacerbation] @ -No Poses a threat to life or bodily function? @ -Unlikely at this time (Misbah Wagner) - Lab Data Lab Results 08/02/24 08/02/24 08/02/24 Range/Units 15:00 15:00 15:00 WBC 7.2 (3.8-10.6) k/uL RBC 4.59 (4.30-5.90) m/uL Hgb 14.0 (13.0-17.5) gm/dL Hct 42.5 (39.0-53.0) % MCV 92.5 (80.0-100.0) fL MCH 30.5 (25.0-35.0) pg MCHC 33.0 (31.0-37.0) g/dL RDW 12.9 (11.5-15.5) % Plt Count 204 (150-450) k/uL MPV 8.5 Neutrophils % 68 % Lymphocytes % 19 % Monocytes % 6 % Eosinophils % 6 % Basophils % 1 % Neutrophils # 4.9 (1.3-7.7) k/uL Lymphocytes # 1.3 (1.0-4.8) k/uL Monocytes # 0.5 (0-1.0) k/uL Eosinophils # 0.4 (0-0.7) k/uL Basophils # 0.0 (0-0.2) k/uL PT 11.6 (10.0-12.5) sec INR 1.1 (<1.2) APTT 22.2 (22.0-30.0) sec Sodium 138 (137-145) mmol/L Potassium 4.8 (3.5-5.1) mmol/L Chloride 108 H (98-107) mmol/L Carbon Dioxide 23 (22-30) mmol/L Anion Gap 7 mmol/L BUN 25 H (9-20) mg/dL Creatinine 1.01 (0.66-1.25) mg/dL Est GFR (CKD-EPI)AfAm 83 (>60 ml/min/1.73 sqM) Est GFR (CKD-EPI)NonAf 72 (>60 ml/min/1.73 sqM) Glucose 198 H (74-99) mg/dL Calcium 9.4 (8.4-10.2) mg/dL Magnesium (1.6-2.3) mg/dL Total Bilirubin 0.3 (0.2-1.3) mg/dL AST 20 (17-59) U/L ALT 22 (4-49) U/L Alkaline Phosphatase 47 (38-126) U/L Troponin I (0.000-0.034) ng/mL Total Protein 6.7 (6.3-8.2) g/dL Albumin 4.6 (3.5-5.0) g/dL 08/02/24 08/02/24 08/02/24 Range/Units 15:00 15:00 17:49 WBC (3.8-10.6) k/uL RBC (4.30-5.90) m/uL Hgb (13.0-17.5) gm/dL Hct (39.0-53.0) % MCV (80.0-100.0) fL MCH (25.0-35.0) pg MCHC (31.0-37.0) g/dL RDW (11.5-15.5) % Plt Count (150-450) k/uL MPV Neutrophils % % Lymphocytes % % Monocytes % % Eosinophils % % Basophils % % Neutrophils # (1.3-7.7) k/uL Lymphocytes # (1.0-4.8) k/uL Monocytes # (0-1.0) k/uL Eosinophils # (0-0.7) k/uL Basophils # (0-0.2) k/uL PT (10.0-12.5) sec INR (<1.2) APTT (22.0-30.0) sec Sodium (137-145) mmol/L Potassium (3.5-5.1) mmol/L Chloride (98-107) mmol/L Carbon Dioxide (22-30) mmol/L Anion Gap mmol/L BUN (9-20) mg/dL Creatinine (0.66-1.25) mg/dL Est GFR (CKD-EPI)AfAm (>60 ml/min/1.73 sqM) Est GFR (CKD-EPI)NonAf (>60 ml/min/1.73 sqM) Glucose (74-99) mg/dL Calcium (8.4-10.2) mg/dL Magnesium 1.9 (1.6-2.3) mg/dL Total Bilirubin (0.2-1.3) mg/dL AST (17-59) U/L ALT (4-49) U/L Alkaline Phosphatase (38-126) U/L Troponin I <0.012 <0.012 (0.000-0.034) ng/mL Total Protein (6.3-8.2) g/dL Albumin (3.5-5.0) g/dL - EKG Data EKG Comments: 12-lead Electrocardiogram Interpretation Note EKG was reviewed and interpreted by myself. 12-lead ECG performed at 1445 is interpreted by me as revealing paced rhythm at a rate of 71 beats per minute. Indeterminate axis. KS interval is 213 ms, QRS duration is 169 ms, QTc is 441 ms.. There were no ST or T wave abnormalities to suggest myocardial ischemia or injury. R wave progression across the precordium was satisfactory. By my interpretation this EKG is non-diagnostic for acute ischemia. When compared with EKG from June 2024, no obvious dynamic changes. (Misbah Wagner) Disposition <Brianna Rushing - Last Filed: 08/02/24 15:07> Is patient prescribed a controlled substance at d/c from ED?: No Time of Disposition: 18:30 <Misbah Wagner - Last Filed: 08/02/24 22:58> Clinical Impression: Dizziness, Cervical radiculopathy, Chest pain Disposition: HOME SELF-CARE Condition: Good Instructions (If sedation given, give patient instructions): Dizziness (ED) Additional Instructions: Follow-up with your spine surgeon Dr. Casillas send regarding her cervical spine which is likely the cause of many of your chronic complaints. Please return to the emergency department if any worsening symptoms. Attempt follow-up with your PCP in the next 1 to 3 days. Referrals: Herb Sanchez MD [Primary Care Provider] - 1-2 days
[2024-08-02 15:27] LABS: INR 1.1 (<1.2); Partial Thromboplastin Time 22.2 sec (22.0-30.0); Prothrombin Time 11.6 sec (10.0-12.5)
[2024-08-02 15:40] LABS: ALT 22 U/L (4-49); AST 20 U/L (17-59); African American GFR (CKD) 83 (>60 ml/min/1.73 sqM); Albumin 4.6 g/dL (3.5-5.0); Alkaline Phosphatase 47 U/L (38-126); Anion Gap 7 mmol/L; Blood Urea Nitrogen 25 mg/dL (9-20); Calcium 9.4 mg/dL (8.4-10.2); Carbon Dioxide 23 mmol/L (22-30); Chloride 108 mmol/L (98-107); Glucose 198 mg/dL (74-99); Non-African American GFR(CKD) 72 (>60 ml/min/1.73 sqM); Potassium 4.8 mmol/L (3.5-5.1); Sodium 138 mmol/L (137-145); Total Bilirubin 0.3 mg/dL (0.2-1.3); Total Protein 6.7 g/dL (6.3-8.2)
--- NOTE | 2024-08-02 16:03 | XR ---
Chest, 2 view. HISTORY: Dizziness COMPARISON: 07/04/2024 TECHNIQUE: PA and lateral views the chest are obtained. FINDINGS: There is a 2-lead cardiac pacemaker is unchanged in position. There is prior CABG surgery. The lungs are clear and there is no consolidative or interstitial opacity. There is no pleural effusion or pneumothorax. The heart, pulmonary vasculature, mediastinum and ines appear normal. The osseous structures are intact. IMPRESSION: No interval change. No acute cardiopulmonary disease. [facility], , 08/02/2024 4:01 PM
[2024-08-02] MEDS: SODIUM CHLORIDE 0.9% 1,000 ML IV STA (16:17)
--- NOTE | 2024-08-02 16:25 | CT ---
EXAMINATION TYPE: CT brain wo con DATE OF EXAM: 08/02/2024 COMPARISON: 07/04/2024 CLINICAL INDICATION: Male, 79 years old with history of persistent dizziness; PHH, Persistent dizzine ss. CT DLP: 1186 mGycm Automated exposure control for dose reduction was used. Findings: The ventricles, basal cisterns and sulci over convexities are mildly enlarged consistent with mild ge neralized age-appropriate atrophy.. There is mild patchy decreased density in the periventricular white matter consistent with mild chron ic ischemic white matter demyelination. There is no mass effect or shift of midline structures... There is no acute intra or extra-axial hemorrhage. The posterior fossa including the brainstem, fourth ventricle and cerebellopontine angles appear flori sly normal. The intraorbital contents appear normal symmetric Visualized paranasal sinuses and mastoid air cells are well aerated. Calvarium is intact. IMPRESSION: 1. Mild age appropriate senescent changes. 2. No significant interval change. 3. No acute bleed or mass effect. [facility], , 08/02/2024 4:23 PM
--- NOTE | 2024-08-02 16:45 | CT ---
EXAMINATION TYPE: CT angio head neck DATE OF EXAM: 08/02/2024 4:28 PM COMPARISON: Brain same day. CLINICAL INDICATION: Male, 79 years old with history of persistent dizziness; PHH, Persistent dizzine ss. TECHNIQUE: Axially acquired helical CT angiogram of the head and neck was obtained with contrast. Axi al images are supplemented with 3D reconstructions and MIP images which were post-processed at an in dependent workstation. NASCET criteria used. Contrast used:65 ml mL of Isovue 370 with IV Contrast, Oral contrast used: None. CT DLP: 481.4 mGycm, Automated exposure control for dose reduction was used. FINDINGS: CTA HEAD: No evidence of acute intracranial hemorrhage, mass effect, or midline shift. The ventricles, sulci, a nd cisterns are unremarkable. Vertebral arteries: The vertebral arteries are patent. Vertebral artery dominance: Codominant Basilar artery: The basilar artery is intact. The basilar artery bifurcation is normal. Internal Carotid arteries: The cervical, petrous, cavernous and supraclinoid segments are normal. BRENDA: Diminutive right A1 segment. Patent with no evidence of aneurysm. ACOM: Present without evidence of aneurysm. MCA: Patent with no evidence of aneurysm. FILM MOUNTER: Patent with no evidence of aneurysm. PCOM: Hypoplastic right , normal caliber left. Dural sinuses: Patent. CTA NECK: Right Carotid System: The common carotid and external carotid arteries are patent. There is less than 50% stenosis at the c arotid bifurcation secondary to calcified plaque. The rest of the internal carotid artery is patent. Left Carotid System: The common carotid and external carotid arteries are patent. There is less than 50% stenosis at the c arotid bifurcation secondary to calcified plaque. The rest of the internal carotid artery is patent. Vertebral arteries are patent without evidence hemodynamically significant stenosis. There is a three-vessel aortic arch. The origins of the great vessels are patent. No evidence of hemo dynamically significant stenosis. Upper thorax: Cardiac conduction leads partially visualized. IMPRESSION: No evidence of dissection of the cervical internal carotid arteries or vertebral arteries. No any evidence of significant stenosis at the carotid bifurcations. No evidence of intracranial high-grade stenosis or intracranial aneurysm. [facility], , 08/02/2024 4:42 PM
[2024-08-02 19:06] VITALS: BP 102/74; PULSE 60; RESP 16
== END 2024-08-02 19:07 | disposition home or self-care (01) ==
LOC: EC 14:32
DX: R42 Dizziness and giddiness (principal); M54.12 Radiculopathy, cervical region; R07.9 Chest pain, unspecified; Z87.891 Personal history of nicotine dependence; I25.10 Atherosclerotic heart disease of native coronary artery without angina pectoris; Z95.810 Presence of automatic (implantable) cardiac defibrillator; M50.30 Other cervical disc degeneration, unspecified cervical region
CPT/HCPCS: 36415; 93005; 80053; 83735; 84484; 85025; 85610; 85730; 71046; 70496; 70450; 70498; 99284; 96360; Q9967

== ENCOUNTER → 2024-09-04 | Outpatient (CLI) | payer MEDICARE ==
[2024-09-04 15:29] LABS: ALT 14 U/L (10-49); AST 17 U/L (14-35); Albumin 4.7 g/dL (3.8-4.9); Albumin/Globulin Ratio 2.24 Ratio (1.60-3.17); Alkaline Phosphatase 68 U/L (41-126); BUN/Creat Ratio 17.45 Ratio (12.00-20.00); Blood Urea Nitrogen 19.2 mg/dL (9.0-27.0); Calcium 9.5 mg/dL (8.7-10.3); Carbon Dioxide 28.3 mmol/L (21.6-31.8); Chloride 104 mmol/L (96-109); Chol/HDL Ratio 3.46 Ratio; Globulin 2.1 g/dL (1.6-3.3); Glucose 118 mg/dL (70-110); LDL Cholesterol,Calculated 55.3 mg/dL (0.0-131.0); Potassium 5.1 mmol/L (3.5-5.5); Sodium 142 mmol/L (135-145); Total Bilirubin 0.4 mg/dL (0.3-1.2); Total Protein 6.8 g/dL (6.2-8.2)
== END | disposition home or self-care (01) ==
LOC: LABWHC1 09:45
PROVIDERS: ATTEND Internal Medicine Clinical Cardiac Electrophysiology
DX: I50.9 Heart failure, unspecified (principal); I25.10 Atherosclerotic heart disease of native coronary artery without angina pectoris; Z95.1 Presence of aortocoronary bypass graft
CPT/HCPCS: 36415; 80053; 80061; 83036; 84443

== ENCOUNTER 2025-02-22 10:38 | Emergency (ER) | payer MEDICARE ==
[2025-02-22 10:44] VITALS: RESP 16; TEMP 97.6
--- NOTE | 2025-02-22 11:08 | ED ---
General Adult HPI - General Chief complaint: Neuro Symptoms/Deficit Stated complaint: Facial Numbness Time Seen by Provider: 02/22/25 10:45 Source: patient, RN notes reviewed, old records reviewed Mode of arrival: wheelchair Limitations: no limitations - History of Present Illness Initial comments: This is a 79-year-old male who presents to the emergency department complaining of left-sided facial numbness. Patient states it started in the temporal region years ago and now today he feels like it is progressing into the left side of his face. Patient states he is also been off balance for about 2 years and that continues to get slowly worse. Patient denies any headache patient denies fever chills. Patient denies any weakness in any of his extremities. Patient [place] any chest pain palpitation difficulty breathing shortness of breath. Patient denies any abdominal pain patient has nausea vomiting diarrhea - Related Data Home Medications Medication Instructions Recorded Confirmed Glimepiride [Amaryl] 1 mg PO DAILY 10/09/15 07/04/24 Atorvastatin [Lipitor] 40 mg PO HS 06/22/17 07/04/24 carvediloL [Coreg*] 12.5 mg PO BID 06/22/17 07/04/24 metFORMIN HCL [Glucophage] 1,000 mg PO BID 06/22/17 07/04/24 Aspirin 81 mg PO DAILY 07/31/17 07/04/24 Glimepiride [Amaryl] 2 mg PO HS 07/04/24 07/04/24 Levothyroxine Sodium [Synthroid] 25 mcg PO DAILY 07/04/24 07/04/24 Previous Rx's Medication Instructions Recorded Dapagliflozin Propanediol [Farxiga] 10 mg PO DAILY 30 Days #30 tab 07/08/24 Sacubitril/Valsartan [Entresto 24 1 each PO BID 30 Days #60 tab 07/08/24 mg-26 mg Tablet] Meclizine [Antivert] 25 mg PO TID #20 tab 02/22/25 Allergies Allergy/AdvReac Type Severity Reaction Status Date / Time No Known Allergies Allergy Verified 02/22/25 10:44 Review of Systems ROS Statement: Those systems with pertinent positive or pertinent negative responses have been documented in the HPI. ROS Other: All systems not noted in ROS Statement are negative. 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 History of Any Multi-Drug Resistant Organisms: None Reported Past Surgical History: Back Surgery, Cholecystectomy, Coronary Bypass/CABG, Heart Catheterization, Orthopedic Surgery, Pacemaker Additional Past Surgical History / Comment(s): CABG X4 in 2008, LOWER BACK, NECK SX X2, FOOT SX X 3, CATARACTS. Past Anesthesia/Blood Transfusion Reactions: No Reported Reaction Type of Cardiac Device: Permanent Pacemaker Device Placement Date:: 2012 Past Psychological History: No Psychological Hx Reported Smoking Status: Former smoker Past Alcohol Use History: Rare Past Drug Use History: Marijuana - Past Family History Brother(s) Family Medical History: Cancer Additional Family Medical History / Comment(s): 2 BROTHERS WITH PROSTATE CA Mother Family Medical History: No Reported History General Exam - General Exam Comments Initial Comments: GENERAL: Patient is well-developed and well-nourished. Patient is nontoxic and well- hydrated and is in no acute distress. ENT: Neck is soft and supple. No significant lymphadenopathy is noted. Oropharynx is clear. Moist mucous membranes. Neck has full range of motion without eliciting any pain. EYES: The sclera were anicteric and conjunctiva were pink and moist. Extraocular movements were intact and pupils were equal round and reactive to light. Eyelids were unremarkable. PULMONARY: Unlabored respirations. Good breath sounds bilaterally. No audible rales rhonchi or wheezing was noted. CARDIOVASCULAR: There is a regular rate and rhythm without any murmurs gallops or rubs. ABDOMEN: Soft and nontender with normal bowel sounds. SKIN: Skin is clear with no lesions or rashes and otherwise unremarkable. NEUROLOGIC: Patient is alert and oriented x3. Cranial nerves II through XII are grossly intact. Motor and sensory are also intact. Normal speech, volume and content. Symmetrical smile. Cerebellar exam grossly intact. MUSCULOSKELETAL: Normal extremities with adequate strength and full range of motion. No lower extremity swelling or edema. No calf tenderness. LYMPHATICS: No significant lymphadenopathy is noted PSYCHIATRIC: Normal psychiatric evaluation. Limitations: no limitations Course Vital Signs 02/22/25 10:41 Temperature 97.6 F Pulse Rate 64 Respiratory 16 Rate Blood Pressure 149/74 O2 Sat by Pulse 99 Oximetry Medical Decision Making - Medical Decision Making EKG is interpreted by myself. EKG shows a paced rhythm at 64 bpm WA interval is 219 QRS is 164 QT interval is 439 QTc is 449. Was pt. sent in by a medical professional or institution ([facility], [employer], urgent care, hospital, or shelter...) When possible be specific @ -No Did you speak to anyone other than the patient for history (EMS, parent, family, police, friend...)? What history was obtained from this source @ -No Did you review nursing and triage notes (agree or disagree)? Why? @ -I reviewed and agree with nursing and triage notes Were old charts reviewed (outside hosp., previous admission, EMS record, old EKG, old radiological studies, urgent care reports/EKG's, shelter records)? Report findings @ -No old charts were reviewed Differential Diagnosis? @ -Differential CVA Ischemic stroke, hemorrhagic stroke, brain tumor, atypical migraine, Wernicke's encephalopathy, seizure, multiple sclerosis, meningitis, encephalitis, hypoglycemia, Guillain-Carpenter, electrolytes disturbance, myasthenia gravis.... This is not meant to be an all-inclusive list EKG interpreted by me (3pts min.). @ -As above X-rays interpreted by me (1pt min.). @ -None done CT interpreted by me (1pt min.). @ -CT of the brain shows no acute dramality. U/S interpreted by me (1pt. min.). @ -None done What testing was considered but not performed or refused? (CT, X-rays, U/S, labs)? Why? @ -None What meds were considered but not given or refused? Why? @ -None Did you discuss the management of the patient with other professionals (professionals i.e. [facility] Vann, [employer], lab, RT, psych nurse, psych social worker, fitter armament, teacher, delinquency prevention officer, correctional casework specialist)? Give summary @ -No Was smoking cessation discussed for >3mins.? @ -No Was critical care preformed (if so, how long)? @ -No Were there social determinants of health that impacted care today? How? (Homelessness, low income, unemployed, alcoholism, drug addiction, transportation, low edu. Level, literacy, decrease access to med. care, half-way, rehab)? @ -No Was there de-escalation of care discussed even if they declined (Discuss DNR or withdrawal of care, Hospice)? DNR status @ -No What co-morbidities impacted this encounter? (DM, HTN, Smoking, COPD, CAD, Cancer, CVA, ARF, Chemo, Hep., AIDS, mental health diagnosis, sleep apnea, morbid obesity)? @ -None Was patient admitted / discharged? Hospital course, mention meds given and route, prescriptions, significant lab abnormalities, going to OR and other pertinent info. @ -Patient's lab work shows no acute abnormality. CT scan shows no acute abnormality. Patient has symptoms similar to vertigo which is a potential diagnosis however patient has never been given any antivertigo medication and he will be sent home with some. Patient also was told to follow-up with his primary medical care doctor and a neurologist so they can further delve into his difficulty walking Undiagnosed new problem with uncertain prognosis? @ -No Drug Therapy requiring intensive monitoring for toxicity (Heparin, Nitro, Insulin, Cardizem)? @ -No Were any procedures done? @ -No Diagnosis/symptom? @ -Paresthesias facial Acute, or Chronic, or Acute on Chronic? @ -Acute on chronic Uncomplicated (without systemic symptoms) or Complicated (systemic symptoms)? @ -Uncomplicated Side effects of treatment? @ -No Exacerbation, Progression, or Severe Exacerbation? @ -No Poses a threat to life or bodily function? How? (Chest pain, [place], [place], pneumonia, PE, COPD, DKA, ARF, appy, cholecystitis, CVA, Diverticulitis, Homicidal, Suicidal, threat to staff... and all critical care pts) @ -No Diagnosis/symptom? @ -Vertigo Acute, or Chronic, or Acute on Chronic? @ -Chronic Uncomplicated (without systemic symptoms) or Complicated (systemic symptoms)? @ -Complicated Side effects of treatment? @ -None Exacerbation, Progression, or Severe Exacerbation] @ -No Poses a threat to life or bodily function? @ -No - Lab Data Result diagrams: 02/22/25 11:30 02/22/25 11:30 Lab Results 02/22/25 02/22/2525 Range/Units 11:30 11:30 11:30 WBC 7.68 (4.50-10.00) 10*3/uL RBC 4.36 L (4.40-5.60) 10*6/uL Hgb 13.5 (13.0-17.0) g/dL Hct 39.4 L (39.6-50.0) % MCV 90.4 (80.0-97.0) fL MCH 31.0 (27.0-32.0) pg MCHC 34.3 (32.0-37.0) g/dL Plt Count 192 (140-440) 10*3/uL MPV 11.2 (9.5-12.2) fL Immature Gran % (Auto) 0.7 % Neutrophils % 67.8 % Lymphocytes % 18.1 % Monocytes % 8.7 % Eosinophils % 4.0 % Basophils % 0.7 % Immature Gran # 0.05 H (0.00-0.04) 10*3/uL Neutrophils # 5.21 (1.80-7.70) 10*3/uL Lymphocytes # 1.39 (0.90-5.00) 10*3/uL Monocytes # 0.67 (0.20-1.00) 10*3/uL Eosinophils # 0.31 (0.04-0.35) 10*3/uL Basophils # 0.05 (0.00-0.10) 10*3/uL Sodium 140 (137-145) mmol/L Potassium 5.4 H (3.5-5.1) mmol/L Chloride 104 (98-107) mmol/L Carbon Dioxide 24 (22-30) mmol/L Anion Gap 12 mmol/L BUN 33 H (9-20) mg/dL Creatinine 1.42 H (0.66-1.25) mg/dL Est GFR (CKD-EPI)AfAm 55 (>60 ml/min/1.73 sqM) Est GFR (CKD-EPI)NonAf 48 (>60 ml/min/1.73 sqM) Glucose 99 (74-99) mg/dL Calcium 9.5 (8.4-10.2) mg/dL Total Bilirubin 0.6 (0.2-1.3) mg/dL AST 19 (17-59) U/L ALT 16 (4-49) U/L Alkaline Phosphatase 56 (38-126) U/L Troponin I <0.012 (0.000-0.034) ng/mL Total Protein 6.6 (6.3-8.2) g/dL Albumin 4.5 (3.5-5.0) g/dL Disposition Clinical Impression: Vertigo, Facial paresthesia Disposition: HOME SELF-CARE Condition: Good Prescriptions: Meclizine [Antivert] 25 mg PO TID #20 tab Is patient prescribed a controlled substance at d/c from ED?: No Referrals: None,Stated [REFERRING] - 1-2 days Time of Disposition: 13:39
[2025-02-22 11:33] LABS: Basophils # (A) 0.05 10*3/uL (0.00-0.10); Basophils % (A) 0.7 %; Eosinophils # (A) 0.31 10*3/uL (0.04-0.35); Eosinophils % (A) 4.0 %; HCT 39.4 % (39.6-50.0); HGB 13.5 g/dL (13.0-17.0); Lymphocytes # (A) 1.39 10*3/uL (0.90-5.00); Lymphocytes % (A) 18.1 %; MCH 31.0 pg (27.0-32.0); MCHC 34.3 g/dL (32.0-37.0); MCV 90.4 fL (80.0-97.0); Monocytes # (A) 0.67 10*3/uL (0.20-1.00); Monocytes % (A) 8.7 %; Neutrophils # (A) 5.21 10*3/uL (1.80-7.70); Neutrophils % (A) 67.8 %; Platelet Count 192 10*3/uL (140-440); RBC 4.36 10*6/uL (4.40-5.60); RDW 13.2 % (11.5-14.5); WBC 7.68 10*3/uL (4.50-10.00)
[2025-02-22] MEDS: SODIUM CHLORIDE 0.9% 500 ML 500 ML IV STA (11:38)
[2025-02-22 11:44] LABS: ALT 16 U/L (4-49); AST 19 U/L (17-59); African American GFR (CKD) 55 (>60 ml/min/1.73 sqM); Albumin 4.5 g/dL (3.5-5.0); Alkaline Phosphatase 56 U/L (38-126); Anion Gap 12 mmol/L; Blood Urea Nitrogen 33 mg/dL (9-20); Calcium 9.5 mg/dL (8.4-10.2); Carbon Dioxide 24 mmol/L (22-30); Chloride 104 mmol/L (98-107); Glucose 99 mg/dL (74-99); Non-African American GFR(CKD) 48 (>60 ml/min/1.73 sqM); Potassium 5.4 mmol/L (3.5-5.1); Sodium 140 mmol/L (137-145); Total Protein 6.6 g/dL (6.3-8.2)
--- NOTE | 2025-02-22 12:27 | CT ---
EXAMINATION TYPE: CT brain wo con DATE OF EXAM: 02/22/2025 COMPARISON: 08/02/2024 CLINICAL INDICATION: Male, 79 years old with history of Facial numbness; PHH, Facial numbess CT DLP: 1229.4 mGycm Automated exposure control for dose reduction was used. Findings: The ventricles, basal cisterns and sulci over convexities are moderately enlarged consistent with mod erate generalized atrophy. There is mild decreased density in the periventricular white matter consis tent with mild chronic ischemic white matter demyelination. There is no mass effect or shift of midline structures. There is no acute intra or extra-axial hemorrhage. The posterior fossa including the brainstem, fourth ventricle and cerebellopontine angles appear flori sly normal. The intraorbital contents appear normal symmetric Visualized paranasal sinuses and mastoid air cells are well aerated. Calvarium is intact. IMPRESSION: 1. No acute bleed or mass effect. 2. Mild senescent changes as described above. [facility], , 02/22/2025 12:24 PM
[2025-02-22 15:11] VITALS: BP 134/78; PULSE 78
== END 2025-02-22 15:11 | disposition home or self-care (01) ==
LOC: EC 10:38
DX: R20.2 Paresthesia of skin (principal); R42 Dizziness and giddiness; Z87.891 Personal history of nicotine dependence
CPT/HCPCS: 36415; 70450; 80053; 84484; 85025; 93005; 99284